=== PATIENT | female | born 1970 | race Caucasian/White ===

== ENCOUNTER 2016-12-25 16:44 | Inpatient (IN) | payer BC ==
[~2016-12-25] VITALS: Ht 167.6 cm; Wt 92.3 kg
[~2016-12-25 16:44] MED LIST: IBUP400T20 PO; ONDA1TAB16 PO; TRAM50 PO; TRAZ100 PO; TYLE3 PO; ZOLO50TA PO
[2016-12-25 16:48] VITALS: BP 157/74; PULSE 77; RESP 14; TEMP 97.5; O2SAT 99
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
[2016-12-25] MEDS ORDERED: SODIUM CHLORIDE 0.9% FLUSH 10 ML FLUSH IVF PRN (18:15)
[2016-12-25 18:27] VITALS: BP 139/72; PULSE 69; RESP 17; O2SAT 98
[2016-12-25 18:29] VITALS: BP 139/82; PULSE 66; RESP 16; O2SAT 98
--- NOTE | 2016-12-25 18:46 | RADRPT ---
EXAM DATE/TIME: 12/25/2016 18:27 [facility] COMPARISON: No previous studies available for comparison. INDICATIONS : Chest pain. MEDICAL HISTORY : Ulcers. SURGICAL HISTORY : Hysterectomy. ENCOUNTER: Initial ACUITY: 1 day PAIN SCORE: 5/10 LOCATION: Bilateral chest FINDINGS: Single AP view of the chest. The lungs are clear. Cardiomediastinal silhouette within normal limits. No evidence of pleural effusion or pneumothorax. CONCLUSION: No acute cardiopulmonary disease identified. Omari Cat MD on December 25, 2016 at 18:42 Board Certified Radiologist. This report was verified electronically.
[2016-12-25 19:01] LABS: AUTOMATED NEUTROPHIL # 5.2 TH/MM3 (1.8-7.7); BASOPHIL # 0.1 TH/MM3 (0-0.2); BASOPHIL % 0.8 % (0.0-2.0); EOSINOPHIL # 0.1 TH/MM3 (0-0.4); EOSINOPHIL % 1.1 % (0.0-4.0); HEMATOCRIT 38.2 % (35.0-46.0); HEMO FLAGS DIFF FINAL; LYMPH % 26.3 % (9.0-44.0); LYMPHOCYTE # 2.1 TH/MM3 (1.0-4.8); MEAN CORPUSCULAR HEMOGLOBIN 28.8 PG (27.0-34.0); MEAN CORPUSCULAR HGB CONC 32.8 % (32.0-36.0); MONO % 8.1 % (0.0-8.0); NEUT % 63.7 % (16.0-70.0); PLATELET COUNT 221 TH/MM3 (150-450); RED BLOOD COUNT 4.34 MIL/MM3 (4.00-5.30); RED CELL DISTRIBUTION WIDTH 12.6 % (11.6-17.2); WHITE BLOOD COUNT 8.1 TH/MM3 (4.0-11.0)
--- NOTE | 2016-12-25 19:02 | RADRPT ---
EXAM DATE/TIME: 12/25/2016 18:36 [facility] COMPARISON: No previous studies available for comparison. INDICATIONS : Dizziness, cephalgia and blurred vision for one month. RADIATION DOSE: 57.10 CTDIvol (mGy) MEDICAL HISTORY : Hepatitis B. SURGICAL HISTORY : Tubal ligation. Hysterectomy. ENCOUNTER: Initial ACUITY: 1 month PAIN SCALE: 6/10 LOCATION: Bilateral head TECHNIQUE: Multiple contiguous axial images were obtained of the head. Using automated exposure control and adj ustment of the mA and/or kV according to patient size, radiation dose was kept as low as reasonably a chievable to obtain optimal diagnostic quality images. FINDINGS: CEREBRUM: The ventricles are normal for age. No evidence of midline shift, mass lesion, hemorrhage or acute in farction. No extra-axial fluid collections are seen. POSTERIOR FOSSA: The cerebellum and brainstem are intact. The 4th ventricle is midline. The cerebellopontine angle i s unremarkable. EXTRACRANIAL: The visualized portion of the orbits is intact. SKULL: The calvaria is intact. No evidence of skull fracture. CONCLUSION: No acute intracranial findings. Omari Cat MD on December 25, 2016 at 18:58 Board Certified Radiologist. This report was verified electronically.
[2016-12-25 19:07] LABS: APTT (PATIENT) 25.9 SEC (24.3-30.1); INTERNATIONAL NORMALIZED RATIO 0.9 RATIO
[2016-12-25 19:10] LABS: BLOOD, URINE NEG (NEG); COMMENT (UR) CULT NOT INDICATED; CULTURE IF INDICATED CULT NOT INDICATED; GLUCOSE,URINE NEG (NEG); KETONE, URINE NEG (NEG); NITRITE,URINE NEG (NEG); PH, URINE 5.5 (5.0-8.5); SQUAMOUS EPITHELIAL CELL URINE 7 /hpf (0-5); URINE COLOR YELLOW (YELLW/STRAW)
[2016-12-25 19:27] LABS: AMPHETAMINE, URINE NEG (NEG); BARBITURATES, URINE NEG (NEG); COCAINE, URINE NEG (NEG)
[2016-12-25 19:28] LABS: ANION GAP 10 MEQ/L (5-15); AST (GOT) 12 U/L (15-37); BICARBONATE 25.7 MEQ/L (21.0-32.0); BLOOD UREA NITROGEN 15 MG/DL (7-18); CHLORIDE 103 MEQ/L (98-107); GLOMERULAR FILTRATION RATE 74 ML/MIN (>89); POTASSIUM 3.6 MEQ/L (3.5-5.1); SODIUM (NA) 139 MEQ/L (136-145)
[2016-12-25 19:29] LABS: ALT (GPT) 21 U/L (10-53)
[2016-12-25] MEDS ORDERED: ZOLO100T PO (19:32)
[2016-12-25] MEDS ORDERED: GABA300C5 PO (19:32)
[2016-12-25 19:33] LABS: ALKALINE PHOSPHATASE 57 U/L (45-117); TOTAL BILIRUBIN ADULT 0.2 MG/DL (0.2-1.0)
[2016-12-25] MEDS ORDERED: TRAZ100T6 PO (19:34)
[2016-12-25] MEDS ORDERED: CYMB60CA PO (19:34)
[2016-12-25 19:35] LABS: CREATINE KINASE 74 U/L (26-192)
[2016-12-25 20:03] VITALS: BP 132/69; PULSE 70; RESP 18; O2SAT 98
[2016-12-25] MEDS ORDERED: LORazepam 2 MG/ML VIAL IM PRN (21:45)
[2016-12-25] MEDS ORDERED: ACETAMINOPHEN 325 MG TAB PO PRN (21:45)
[2016-12-25] MEDS ORDERED: ALUMINUM/MAGNESIUM/SIMETH 30 ML CUP PO PRN (21:45)
[2016-12-25] MEDS: LORazepam 1 MG TAB PO PRN (22:08)
[2016-12-25] MEDS: IBUPROFEN 600 MG TAB PO PRN (22:08)
[2016-12-25] MEDS: SERTRALINE HCL 100 MG TAB PO SCH (22:08)
[2016-12-25] MEDS ORDERED: traZODone HCL 100 MG TAB PO SCH (22:09)
[2016-12-25 22:15] VITALS: BP 127/86; PULSE 61; RESP 18; O2SAT 98
[2016-12-25 22:55] VITALS: BP 125/85; PULSE 72; RESP 19; TEMP 98.2; O2SAT 96
[2016-12-26] MEDS: LORazepam 1 MG TAB PO PRN ×3 (05:26→20:31)
[2016-12-26] MEDS: IBUPROFEN 600 MG TAB PO PRN ×2 (05:27→09:41)
[2016-12-26 06:03] VITALS: BP 116/67; PULSE 73; RESP 17; TEMP 97.1; O2SAT 97
[2016-12-26] MEDS ORDERED: DULoxetine HCl DR 60 MG CAP PO SCH (09:00)
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
--- NOTE | 2016-12-26 13:24 | EKG ---
Date Performed: 12/25/2016 Time Performed: 19:03:15 PTAGE: 46 years EKG: Sinus rhythm LOW QRS VOLTAGE IN PRECORDIAL LEADS BORDERLINE ECG PREVIOUS TRACING : 12/22/2011 14.09 Compared to prior tracing no significant change DOCTOR: Anthony Oliver Interpretating Date/Time 12/26/2016 13:22:45
--- NOTE | 2016-12-26 14:02 | PD.CONS ---
HPI Service [facility] Consult Requested By Psychiatry team Reason for Consult Pain management, fibromyalgia Primary Care Physician No Primary Care Physician Diagnoses: History of Present Illness Written by Niya Rand, acting as scribe for Dr. De Guzman on 12/26/16 at 13: 49. Patient is a 46-year-old female with primary medical history of depression, anxiety who came into the hospital for suicidal ideations. She states she's been battling with depression and suicidal thoughts since previous months secondary to having severe pain that has been bothering her. She is admitted to inpatient psychiatry unit for further evaluation. Consulted for medical management. Patient seen and examined today. Reports that she goes to her primary care [facility] [place] and was started on Cymbalta and gabapentin. States that increased dose of Cymbalta made her hallucinate and feel jittery and not feeling overall, so her doctor lowered down to dose but she feels that it's not helping her pain. She reports that she has been tested for rheumatoid arthritis but it was negative that she continued to be medicated on Cymbalta, gabapentin, Zoloft, trazodone and was explained discussed at fibromyalgia and depression goes hand in hand. Patient also reports insomnia, described as not sleeping very well that her mind is continually active and not stopping. She states that she tried so many things including aromatherapy, acupuncture but still is unable to sleep. She complained of pain generalized all over her body and joints - hands, knees, hip, dull/achy, rated 8/10-10 over 10. It occurs, intermittent, nonradiating, unrelieved by current regimen of Cymbalta and, pending. She also states that she has shooting pain numbness and tingling on her hands and on her feet that she was given, gabapentin for relief. Otherwise, denies SOB/ dyspnea. Denies chest pain, palpitations, headaches, dizziness. Denies fevers, chills, n/v/d. Denies hematuria, dysuria. Review of Systems Except as stated in HPI: all other systems reviewed are Neg Past Family Social History Allergies: Coded Allergies: Depakote (Verified Allergy, Severe, SEIZURES, 12/25/16) Erythromycin (Verified Allergy, Severe, Anaphylaxis, 12/25/16) Sulfa (Verified Allergy, Severe, Anaphylaxis, 12/25/16) Augmentin (Verified Allergy, Intermediate, rash, 12/25/16) Codeine (Verified Allergy, Unknown, ABDOMINAL PAIN, 12/25/16) Past Medical History Fibromyalgia Depression Anxiety Hepatitis B Past Surgical History Tubal ligation Hysterectomy Cortisone shot on the left knee Reported Medications Reported Meds & Active Scripts Active Reported Trazodone (Trazodone HCl) 100 Mg Tablet 100 Mg PO HS Cymbalta DR (Duloxetine HCl) 60 Mg Capdr 60 Mg PO DAILY Zoloft (Sertraline HCl) 100 Mg Tab 100 Mg PO HS Gabapentin 300 Mg Cap 300 Mg PO HS Active Ordered Medications Current Medications Medications (Trade) Dose Ordered Sig/Angela Route Start Time Stop Time Status Last Admin (NS Flush) 2 ml UNSCH PRN IVF 12/25/16 18:15 (Ativan) 1 mg Q6H PRN PO 12/25/16 21:45 12/26/16 12:44 (Ativan Inj) 1 mg Q6H PRN IM 12/25/16 21:45 (Tylenol) 650 mg Q4H PRN PO 12/25/16 21:45 (Milk Of Magnesia Liq) 30 ml DAILY PRN PO 12/25/16 21:45 (Mag-Al Plus Susp Liq) 30 ml Q6H PRN PO 12/25/16 21:45 (Zoloft) 100 mg HS PO 12/25/16 22:08 12/25/16 22:08 (Motrin) 600 mg Q6H PRN PO 12/25/16 22:00 12/26/16 09:41 (Cymbalta Dr) 30 mg DAILY PO 12/27/16 09:00 (Desyrel) 200 mg HS PO 12/26/16 21:00 (Neurontin) 300 mg HS PO 12/26/16 21:00 Family History She states that father and mother's side had hypertension, mother has diabetes Father is manic and both sisters are suicidal Social History Occasional alcohol use 20 year 1 pack per 3 days, has quit smoking 4 years ago Denies illicit drug use Physical Exam Vital Signs Vital Signs Date Time Temp Pulse Resp B/P Pulse Ox O2 Delivery O2 Flow Rate FiO2 12/26/16 06:03 97.1 73 17 116/67 97 12/25/16 22:55 98.2 72 19 125/85 96 12/25/16 22:15 61 18 127/86 98 Room Air 12/25/16 20:03 70 18 132/69 98 12/25/16 18:29 66 16 12/25/16 18:27 69 17 139/72 98 Room Air 12/25/16 16:48 97.5 77 14 157/74 99 Physical Exam GENERAL: This is a well-nourished, well-developed patient, in no apparent distress. SKIN: No rashes, ecchymoses or lesions. Cool and dry. HEAD: Atraumatic. Normocephalic. No temporal or scalp tenderness. EYES: Pupils equal round and reactive. Extraocular motions intact. No scleral icterus. No injection or drainage. ENT: Nose without bleeding, purulent drainage or septal hematoma. Throat without erythema, tonsillar hypertrophy or exudate. Uvula midline. Airway patent. NECK: Trachea midline. No JVD or lymphadenopathy. Supple, nontender, no meningeal signs. CARDIOVASCULAR: Regular rate and rhythm without murmurs, gallops, or rubs. RESPIRATORY: Clear to auscultation. Breath sounds equal bilaterally. No wheezes , rales, or rhonchi. GASTROINTESTINAL: Abdomen soft, non-tender, nondistended. No hepato-splenomegaly , or palpable masses. No guarding. MUSCULOSKELETAL: Extremities without clubbing, cyanosis, or edema. No joint tenderness, effusion, or edema noted. No calf tenderness. Negative Homans sign bilaterally. NEUROLOGICAL: Awake and alert. Cranial nerves II through XII intact. Motor and sensory grossly within normal limits. Five out of 5 muscle strength in all muscle groups. Normal speech. Laboratory Laboratory Tests Test 12/25/16 12/25/16 18:10 18:30 White Blood Count 8.1 Red Blood Count 4.34 Hemoglobin 12.5 Hematocrit 38.2 Mean Corpuscular Volume 88.0 Mean Corpuscular Hemoglobin 28.8 Mean Corpuscular Hemoglobin 32.8 Concent Red Cell Distribution Width 12.6 Platelet Count 221 Mean Platelet Volume 9.8 Neutrophils (%) (Auto) 63.7 Lymphocytes (%) (Auto) 26.3 Monocytes (%) (Auto) 8.1 Eosinophils (%) (Auto) 1.1 Basophils (%) (Auto) 0.8 Neutrophils # (Auto) 5.2 Lymphocytes # (Auto) 2.1 Monocytes # (Auto) 0.7 Eosinophils # (Auto) 0.1 Basophils # (Auto) 0.1 CBC Comment DIFF FINAL Differential Comment Prothrombin Time 10.0 Prothromb Time International 0.9 Ratio Activated Partial 25.9 Thromboplast Time Sodium Level 139 Potassium Level 3.6 Chloride Level 103 Carbon Dioxide Level 25.7 Anion Gap 10 Blood Urea Nitrogen 15 Creatinine 0.83 Estimat Glomerular Filtration 74 Rate Random Glucose 90 Calcium Level 9.0 Magnesium Level 2.0 Total Bilirubin 0.2 Aspartate Amino Transf 12 (AST/SGOT) Alanine Aminotransferase 21 (ALT/SGPT) Alkaline Phosphatase 57 Total Creatine Kinase 74 Troponin I LESS THAN 0.02 Total Protein 7.4 Albumin 3.8 Ethyl Alcohol Level LESS THAN 3 Urine Color YELLOW Urine Turbidity CLEAR Urine pH 5.5 Urine Specific [place] 1.018 Urine Protein NEG Urine Glucose (UA) NEG Urine Ketones NEG Urine Occult Blood NEG Urine Nitrite NEG Urine Bilirubin NEG Urine Urobilinogen LESS THAN 2.0 Urine Leukocyte Esterase NEG Urine WBC 1 Urine Squamous Epithelial 7 Cells Microscopic Urinalysis Comment CULT NOT INDICATED Urine Opiates Screen NEG Urine Barbiturates Screen NEG Urine Amphetamines Screen NEG Urine Benzodiazepines Screen NEG Urine Cocaine Screen NEG Urine Cannabinoids Screen NEG Result Diagram: 12/25/16180912/25/161809 Assessment and Plan Problem List: (1) Severe recurrent major depression without psychotic features ICD Code: F33.2 Status: Acute (2) Fibromyalgia affecting multiple sites ICD Code: M79.7 Status: Acute Assessment and Plan Patient is a 46-year-old female with primary medical history of depression, anxiety who came into the hospital for suicidal ideations. She states she's been battling with depression and suicidal thoughts since previous months secondary to having severe pain that has been bothering her. She is admitted to inpatient psychiatry unit for further evaluation. Consulted for medical management. Suicidal ideation, depression, anxiety - Managed by psychiatry team Chronic pain, fibromyalgia - Patient is already on Cymbalta may need possible adjustment to lower dose - Start Lyrica - Ibuprofen when necessary - Monitor for relief - Patient symptomatology as described are more related to depression. She states that her pain is all over and she does want to get up in the morning and do activities that she wanted. If her depression could be managed better most probably her chronic pain and fibromyalgia will improve. - Check folic acid, vitamin D level, TSH DVT prop ambulatory This note was transcribed by scribe [Niya Rand]. I, Dr. Jesus De Guzman personally performed the history, physical exam, and medical decision making; and confirmed the accuracy of the information in the transcribed note. Authenticated by Dr. Jesus De Guzman on 12/26/16 at 1400. Thank you for this consultation. We will follow patient with you. Code Status Full code Discussed Condition With Patient, nursing Niya Hays Dec 26, 2016 14:02 Jesus De Guzman MD Dec 26, 2016 17:25
[2016-12-26 18:00] VITALS: BP 119/66; PULSE 76; RESP 18; TEMP 97.5; O2SAT 99
[2016-12-26] MEDS: traZODone HCL 100 MG TAB PO SCH ×2 (20:30→21:25)
[2016-12-26] MEDS: SERTRALINE HCL 100 MG TAB PO SCH (20:31)
[2016-12-26] MEDS ORDERED: PREGABALIN 75 MG CAP PO SCH (21:00)
[2016-12-26] MEDS ORDERED: GABAPENTIN 300 MG CAP PO SCH (21:00)
[2016-12-27 05:54] VITALS: BP 100/60; PULSE 61; RESP 18; TEMP 98.1; O2SAT 97
[2016-12-27] MEDS ORDERED: DULoxetine HCl DR 60 MG CAP PO SCH (09:00)
[2016-12-27] MEDS: LORazepam 1 MG TAB PO PRN ×3 (10:34→20:54)
[2016-12-27] MEDS: IBUPROFEN 600 MG TAB PO PRN ×2 (10:34→16:43)
[2016-12-27 10:53] LABS: ANION GAP 9 MEQ/L (5-15); AST (GOT) 15 U/L (15-37); BICARBONATE 26.5 MEQ/L (21.0-32.0); BLOOD UREA NITROGEN 8 MG/DL (7-18); CHLORIDE 105 MEQ/L (98-107); GLOMERULAR FILTRATION RATE 99 ML/MIN (>89); POTASSIUM 4.1 MEQ/L (3.5-5.1); SODIUM (NA) 140 MEQ/L (136-145)
[2016-12-27 10:54] LABS: ALT (GPT) 20 U/L (10-53)
[2016-12-27 11:20] LABS: ALKALINE PHOSPHATASE 49 U/L (45-117); HDL CHOLESTEROL 72.9 MG/DL (40.0-60.0); LDL CHOLESTEROL 125 MG/DL (0-99); TOTAL BILIRUBIN ADULT 0.4 MG/DL (0.2-1.0)
--- NOTE | 2016-12-27 15:26 | HHI.PYPN ---
Subjective Remarks Patient was seen and case discussed with nursing. Patient is complaining of a headache since this morning and chronic pain that runs down her right arm. Motrin does not seem to be helping. She is also tearful and expresses suicidal ideation. Patient says she looks around the room can devise various ways of hurting herself with objects that she sees. However she denies any intent of doing so. Mood today is "crying all day." Objective Alert: Yes [place]: Person, Place Mood: Anxious, Depressed Affect: Tearful Memory Intact: Immediate (grossly intact) Hallucinations: Auditory (denies) Delusions: No Delusion Type: Other (on elicited) Suicidal: Intent (denies), Plan (specific objects that she sees), Ideation ( suicidal ideation) Homicidal: Ideation (denies) Insight/Judgment Fair Labs Test 12/27/16 09:39 Sodium Level 140 MEQ/L Potassium Level 4.1 MEQ/L Chloride Level 105 MEQ/L Carbon Dioxide Level 26.5 MEQ/L Anion Gap 9 MEQ/L Blood Urea Nitrogen 8 MG/DL Creatinine 0.65 MG/DL Estimat Glomerular Filtration 99 ML/MIN Rate Random Glucose 87 MG/DL Calcium Level 8.8 MG/DL Total Bilirubin 0.4 MG/DL Aspartate Amino Transf 15 U/L (AST/SGOT) Alanine Aminotransferase 20 U/L (ALT/SGPT) Alkaline Phosphatase 49 U/L Total Protein 6.9 GM/DL Albumin 3.4 GM/DL Triglycerides Level 109 MG/DL Cholesterol Level 220 MG/DL LDL Cholesterol 125 MG/DL HDL Cholesterol 72.9 MG/DL Cholesterol/HDL Ratio 3.01 RATIO Vitamin B12 Level 1088 PG/ML 25-Hydroxy Vitamin D Total 21.5 ng/ML Folate 17.3 NG/ML Thyroid Stimulating Hormone 1.360 uIU/ML 3rd Gen Vitals/IOs Vital Signs Date Time Temp Pulse Resp B/P Pulse Ox O2 Delivery O2 Flow Rate FiO2 12/27/16 05:54 98.1 61 18 100/60 97 12/25/16 22:15 Room Air Assessment & Plan Problem List: (1) Severe recurrent major depression without psychotic features ICD Code: F33.2 Assessment & Plan Medical consult for chronic pain. Spoke to psychiatric secretary and nursing about a one-to -one to be started right now. In the transfer to the 2700 unit. DC Cymbalta given she is on Zoloft Justification for Cont. Inpt. Patient will decompensate in a less restrictive setting David Brennan DO Dec 27, 2016 15:26
[2016-12-27] MEDS ORDERED: hydrOXYzine PAMOATE 25 MG CAP PO PRN (15:30)
[2016-12-27 15:47] VITALS: BP 124/84; PULSE 78; RESP 18; TEMP 98.3; O2SAT 97
[2016-12-27] MEDS: GABAPENTIN 100 MG CAP PO SCH (17:46)
[2016-12-27] MEDS: SERTRALINE HCL 100 MG TAB PO SCH (20:55)
[2016-12-27] MEDS: traZODone HCL 100 MG TAB PO SCH (21:55)
[2016-12-28] MEDS: IBUPROFEN 600 MG TAB PO PRN ×3 (04:53→16:52)
[2016-12-28 06:02] VITALS: BP 112/73; PULSE 82; RESP 18; TEMP 97.5; O2SAT 100
[2016-12-28] MEDS: LORazepam 1 MG TAB PO PRN (07:39)
[2016-12-28] MEDS: GABAPENTIN 100 MG CAP PO SCH (08:27)
[2016-12-28] MEDS: CHOLECALCIFEROL (VIT D3) 1000 UNIT TAB PO SCH (08:27)
--- NOTE | 2016-12-28 11:47 | HHI.PYPN ---
Subjective Remarks Patient seen and examined with nurse. Chart reviewed. Case discussed with nursing staff. Patient was transferred to the high acuity unit from the 2600 unit after she verbalized suicidal ideation. On my examination today, the patient reports a history of mental illness stretching back to adolescence when she had been placed on lithium. She notes that she has had 2 prior suicide attempts. She reports prior trials of Celexa, Prozac, Effexor, Depakote, gabapentin, lithium. No reported previous trials of atypical antipsychotics. She reports ongoing low mood and vague suicidal ideation but denies any urge to hurt herself on the inpatient psychiatric unit at this time. Complains of anxious rumination, irritability, sleep disturbance, lack of energy and motivation. No psychotic symptoms. She reports that she is unable to tolerate the Cymbalta and gabapentin and requests that these be discontinued. We discussed alternative strategies for the management of her depression including augmentation of her Zoloft, which she is tolerating well, with lithium, antipsychotics like Seroquel or Abilify, Lamictal, thyroid hormone. After discussion of the risks and benefits of each, she agrees to augmentation with atypical antipsychotic, namely Seroquel. No physical complaints except generalized myalgias related to history of fibromyalgia. Review of Systems Except as stated in HPI: all other systems reviewed are Neg Objective Alert: Yes [place]: Person, Place Mood: Anxious, Depressed Affect: Restricted Memory Intact: Comment (remains intact on clinical exam) Hallucinations: Other (denies AVH) Delusions: No Delusion Type: Other (no delusional material) Suicidal: Intent (denies intent), Plan (denies plan), Ideation (vague suicidal ideation) Homicidal: Ideation (no HI) Insight/Judgment Fair Remarks No motor abnormalities. TP linear. Speech somewhat slow with increased speech latency. Labs Labs reviewed. EKG reveals sinus rhythm with a QTC of 396 ms. Vitals/IOs Vital Signs Date Time Temp Pulse Resp B/P Pulse Ox O2 Delivery O2 Flow Rate FiO2 12/28/16 06:02 97.5 82 18 112/73 100 12/25/16 22:15 Room Air Assessment & Plan Problem List: (1) Severe recurrent major depression without psychotic features ICD Code: F33.2 Assessment & Plan Discontinue Cymbalta and gabapentin due to reported intolerance of these agents. Continue Zoloft as ordered. Augment Zoloft with Seroquel 25 mg at bedtime with plans to titrate to effect. I will additionally provide patient with 12.5 mg of Seroquel twice daily as needed for anxiety, and this will replace her Ativan PRN. Continue to monitor on the high acuity unit for now, although I will discontinue the one-to-one at this time with low threshold to replace one-to-one in the event of any sort of behavioral deterioration. Continue other medications and care as ordered. Patient may sign voluntary and consent for medications. Justification for Cont. Inpt. Medication changes in process. High risk for decompensation in a less restrictive environment. Monitoring for impairments in safety. Discharge Planning Pending psychiatric stabilization Request HC Surrog/Guard Advoc?: No Felipe Acosta MD Dec 28, 2016 11:47
[2016-12-28] MEDS ORDERED: PILL SPLITTER OTHER PRN (12:15)
--- NOTE | 2016-12-28 14:49 | EKG ---
Date Performed: 12/27/2016 Time Performed: 12:20:21 PTAGE: 46 years EKG: Sinus rhythm LOW QRS VOLTAGE IN PRECORDIAL LEADS Since previous tracing, no significant change noted BORDERLINE E CG PREVIOUS TRACING : 12/25/2016 19.03 DOCTOR: Rey Chung Interpretating Date/Time 12/28/2016 14:48:27
[2016-12-28] MEDS: MAGNESIUM HYDROXIDE SUSP 30 ML CUP PO PRN ×2 (14:53→22:01)
--- NOTE | 2016-12-28 16:26 | HHI.PR ---
Subjective Remarks Reconsult for pain related to fibromyalgia. Per my previous recommendation, patient was started on Lyrica. However this was discontinued prior to the patient receiving a dose. Patient is currently on ibuprofen, Zoloft, Seroquel, and trazodone. Patient is seen in her room. She reports generalized joint pain, improved with ibuprofen. She reports that she is not sleeping well at night. She was started on Seroquel at night to help with sleep. Objective Vitals Vital Signs Date Time Temp Pulse Resp B/P Pulse Ox O2 Delivery O2 Flow Rate FiO2 12/28/16 06:02 97.5 82 18 112/73 100 Result Diagram: 12/25/16180912/27/16 0939 Imaging Last Impressions Head CT 12/25/161801 Signed Impressions: Service Date/Time: Sunday, December 25, 2016 18:36 - CONCLUSION: No acute intracranial findings. Omari Cat MD Chest X-Ray 12/25/161801 Signed Impressions: Service Date/Time: Sunday, December 25, 2016 18:27 - CONCLUSION: No acute cardiopulmonary disease identified. Omari Cat MD Objective Remarks GENERAL: This is a well-nourished, well-developed patient, in no apparent distress. CARDIOVASCULAR: Normal rate and regular rhythm without murmurs, gallops, or rubs. RESPIRATORY: Good respiratory efforts. Breath sounds equal and clear to auscultation bilaterally. GASTROINTESTINAL: Abdomen soft, non-tender, non-distended. Normal active bowel sounds MUSCULOSKELETAL: Extremities without cyanosis, or edema. NEURO: Alert & Oriented x4 to person, place, time, situation. Moves all ext x4 PSYCH: Flat affect A/P Problem List: (1) Severe recurrent major depression without psychotic features ICD Code: F33.2 Status: Acute (2) Fibromyalgia affecting multiple sites ICD Code: M79.7 Status: Acute Assessment and Plan 46-year-old female with primary medical history of depression, anxiety who came into the hospital for suicidal ideations. She states she's been battling with depression and suicidal thoughts since previous months secondary to having severe pain that has been bothering her. She is admitted to inpatient psychiatry unit for further evaluation. Consulted for medical management of pain related to reported history of fibromyalgia. Suicidal ideation, depression, anxiety - Managed by psychiatry team Chronic pain, fibromyalgia -Patient was on Cymbalta. This was discontinued. Apparently she refused gabapentin. One can consider Lyrica in this monitored setting and see if she has side effects or improvement of her symptoms per my previous recommendation. - Ibuprofen when necessary. She appears comfortable throughout our conversation and I see no objective evidence requiring narcotics or stronger pain medication. - Outpatient follow up is warranted with PCP and Rheumatology. Hyperlipidemia: Based on ASCVD risk calculation, patient will not benefit from a statin at this time. Advised outpatient follow-up. Diet low in fat and cholesterol. DVT prop ambulatory I have nothing further to add. Will sign off. Please call with questions. Jesus De Guzman MD Dec 28, 2016 16:26
[2016-12-28 16:43] LABS: HEMOGLOBIN A1a 1.1 %; HEMOGLOBIN A1b 0.7 %; HEMOGLOBIN Ao 86.5 %; HEMOGLOBIN F 1.2 %; HEMOGLOBIN LA1C 1.6 %; HEMOGLOBIN P3 3.3 %
[2016-12-28] MEDS: QUEtiapine FUMARATE 25 MG TAB PO PRN (16:52)
--- NOTE | 2016-12-28 17:23 | HHI.PR ---
Subjective Remarks Follow-up visit fibromyalgia, insomnia. Patient seen and examined today. Reports headaches and body aches and pain is slightly improving with Motrin use. States she she still cannot sleep at night, she would sleep at 10 PM and would be awake at 2 AM. Patient seen by Dr. Ca a day and we'll add Seroquel on the medication regimen. Otherwise, denies SOB/ dyspnea. Denies chest pain, palpitations, headaches, dizziness. Denies fevers, chills, n/v/d. Denies hematuria, dysuria. Objective Vitals Vital Signs Date Time Temp Pulse Resp B/P Pulse Ox O2 Delivery O2 Flow Rate FiO2 12/28/16 06:02 97.5 82 18 112/73 100 Result Diagram: 12/25/16 18112/27/16 0939 Objective Remarks GENERAL: This is a well-nourished, well-developed patient, in no apparent distress. SKIN: Warm and dry. HEAD: Atraumatic. Normocephalic. EYES: Pupils equal round and reactive. No scleral icterus. No injection or drainage. ENT: Nose without bleeding. Airway patent. NECK: Trachea midline. No JVD or lymphadenopathy. CARDIOVASCULAR: Regular rate and rhythm without murmurs, gallops, or rubs. RESPIRATORY: Clear to auscultation. Breath sounds equal bilaterally. No wheezes , rales, or rhonchi. GASTROINTESTINAL: Abdomen soft, non-tender, nondistended. Bowel sounds active 4. MUSCULOSKELETAL: Extremities without clubbing, cyanosis, or edema. NEUROLOGICAL: Awake and alert. Motor and sensory grossly within normal limits. Five out of 5 muscle strength in all muscle groups. Normal speech. A/P Problem List: (1) Severe recurrent major depression without psychotic features ICD Code: F33.2 Status: Acute (2) Fibromyalgia affecting multiple sites ICD Code: M79.7 Status: Acute Assessment and Plan Patient is a 46-year-old female with primary medical history of depression, anxiety who came into the hospital for suicidal ideations. She states she's been battling with depression and suicidal thoughts since previous months secondary to having severe pain that has been bothering her. She is admitted to inpatient psychiatry unit for further evaluation. Consulted for medical management. Suicidal ideation, depression, anxiety - Managed by psychiatry team Chronic pain, fibromyalgia - Patient was discontinued on Cymbalta and gabapentin. Psychiatry did not agree on starting Lyrica. She is now on zoloft and started on seroqel - Ibuprofen when necessary - Monitor for relief - Patient symptomatology as described are more related to depression. - Folic acid within normal, TSH within normal Insomnia - Patient will be on trazodone and Seroquel - Monitor for relief Vitamin D insufficiency - Start vitamin D supplementation 1000 mg daily - Recheck in 3 months as an outpatient with PCP DVT prop ambulatory Discussed with patient, nursing, DrNiya Otoole Dec 28, 2016 17:23 Jesus De Guzman MD Dec 28, 2016 21:34
[2016-12-28] MEDS: traZODone HCL 100 MG TAB PO SCH (21:20)
[2016-12-28] MEDS: SERTRALINE HCL 100 MG TAB PO SCH (21:20)
[2016-12-28] MEDS: QUEtiapine FUMARATE 25 MG TAB PO SCH (21:20)
[2016-12-29 00:30] VITALS: BP 113/67; PULSE 78; RESP 18; TEMP 98.3; O2SAT 99
[2016-12-29 05:39] VITALS: BP 113/57; PULSE 71; RESP 20; TEMP 99.4; O2SAT 98
[2016-12-29] MEDS: CHOLECALCIFEROL (VIT D3) 1000 UNIT TAB PO SCH (08:38)
[2016-12-29] MEDS: IBUPROFEN 600 MG TAB PO PRN ×2 (08:39→16:59)
--- NOTE | 2016-12-29 10:51 | PD.TTN ---
Present for Treatment Team Treatment Team Staff: Provider (Dr. Acosta), Nurse (Jovan Mena RN), Psych Therapist (LYLA Hilario), Occupational Therapist (Scot Al OT) Patient Problems 1. Discharge planning 2. Medication compliance 3. Knowledge deficit 4. Lack of coping skills Progress Toward Goals Provider Input: Pt medication regiment will be adjusted in order to assist with further stabilization. Nurse Input: Pt presents as depressed and tearful at times but with brightening affect. Pt is compliant, cooperative, appropriate and organized. Psych Therapist Input: Pt appears somewhat depressed, cooperative, appropriate and with improving insight into condition. Pt will be linked to outpatient services after discharge. Occupational Therapist Input: Pt is attending groups and participating actively. Documentation Scribe: LYLA Hilario Date Resolved: Dec 29, 2016 Rah Thomas Dec 29, 2016 10:51
--- NOTE | 2016-12-29 15:27 | HHI.PYPN ---
Subjective Remarks Patient seen and examined with nurse. Chart reviewed. Case discussed in treatment team. On my examination today, the patient complains of feeling a little bit groggy from the Seroquel when combined with her already increased dose of trazodone last night. She does say that the Seroquel helped calm her down, and her affect seems more reactive and euthymic today. She feels subjectively improved and denies suicidal ideation at this time. We discuss starting Lyrica as recommended by the hospitalist for her fibromyalgia pain, and she is agreeable to this. Denies side effects from medications otherwise. No new physical complaints. Review of Systems Except as stated in HPI: all other systems reviewed are Neg Objective Alert: Yes [place]: Person, Place Mood: Depressed Affect: Other (affect more reactive and euthymic. Laughs appropriately at times.) Memory Intact: Comment (intact) Hallucinations: Other (no hallucinations) Delusions: No Delusion Type: Other (no delusions) Suicidal: Ideation (denies suicidal ideation) Homicidal: Ideation (no homicidal ideation) Insight/Judgment Fair Remarks No motor abnormalities noted. Thought process linear. Grooming and hygiene fair. Labs Labs reviewed. Vitals/IOs Vital Signs Date Time Temp Pulse Resp B/P Pulse Ox O2 Delivery O2 Flow Rate FiO2 12/29/16 05:39 99.4 71 20 113/57 98 12/25/16 22:15 Room Air Assessment & Plan Problem List: (1) Severe recurrent major depression without psychotic features ICD Code: F33.2 Assessment & Plan Taper trazodone to 100 mg at bedtime. Hopefully this will allow us to continue to titrate her Seroquel without excessive daytime grogginess, as this agent seems to be improving her mood and lessening anxiety. Continue Seroquel as ordered for now. Continue Zoloft as ordered. I will add Lyrica as recommended by the hospitalist. Hospitalist input noted and appreciated. Continue to monitor on the high acuity unit overnight although she may be appropriate for transfer back to the lower acuity unit tomorrow, Wednesday. Continue other medications and care as ordered. Justification for Cont. Inpt. Medication changes in process. Monitoring for impairments in safety. Discharge Planning Pending psychiatric stabilization. I anticipate that the patient will require approximately 5-7 additional inpatient days. Request HC Surrog/Guard Advoc?: No Felipe Acosta MD Dec 29, 2016 15:27
[2016-12-29 18:13] VITALS: BP 118/71; PULSE 80; RESP 20; TEMP 96; O2SAT 97
[2016-12-29] MEDS: traZODone HCL 100 MG TAB PO SCH (21:00)
[2016-12-29] MEDS: SERTRALINE HCL 100 MG TAB PO SCH (21:00)
[2016-12-29] MEDS: PREGABALIN 75 MG CAP PO SCH (21:00)
[2016-12-29] MEDS: QUEtiapine FUMARATE 25 MG TAB PO SCH (21:00)
[2016-12-30] MEDS: IBUPROFEN 600 MG TAB PO PRN ×4 (00:42→21:32)
[2016-12-30] MEDS: QUEtiapine FUMARATE 25 MG TAB PO PRN ×2 (00:42→10:57)
[2016-12-30 06:20] VITALS: BP 124/62; PULSE 97; RESP 18; TEMP 97.4; O2SAT 98
[2016-12-30] MEDS: PREGABALIN 75 MG CAP PO SCH ×2 (08:56→21:33)
[2016-12-30] MEDS: CHOLECALCIFEROL (VIT D3) 1000 UNIT TAB PO SCH (08:56)
--- NOTE | 2016-12-30 11:11 | HHI.PYPN ---
Subjective Remarks Patient seen and examined with counselor. Chart reviewed. Case discussed with nursing staff. No problematic behaviors noted while under observation on the high acuity unit. On my examination today, the patient reports that she slept somewhat poorly overnight but feels less drowsy today. Mood remains somewhat depressed. Affect anxious reports "my brain won't shut down." Denies suicidal ideation. Complains of some headache, reports a history of migraine headaches. Also complains of constipation times 4-5 days but still passing flatus. No other physical complaints. No side effects from medications. Review of Systems Except as stated in HPI: all other systems reviewed are Neg Objective Alert: Yes [place]: Person, Place Mood: Anxious, Depressed Affect: Other (anxious) Memory Intact: Comment (intact) Hallucinations: Other (no AVH) Delusions: No Delusion Type: Other (no delusional material elicited) Suicidal: Ideation (denies SI) Homicidal: Ideation (no HI) Insight/Judgment Fair Remarks No motoric abnormalities noted. Thought processes linear. Speech within normal limits for rate, tone and volume. Grooming and hygiene good. Labs Labs reviewed. Vitals/IOs Vital Signs Date Time Temp Pulse Resp B/P Pulse Ox O2 Delivery O2 Flow Rate FiO2 12/30/16 06:20 97.4 97 18 124/62 98 Assessment & Plan Problem List: (1) Severe recurrent major depression without psychotic features ICD Code: F33.2 Assessment & Plan Titrate Seroquel to 50 mg at bedtime. Continue PRN dose during the day. One- time dose of Fioricet for headache. [place] bowel regimen: Colace scheduled and Dulcolax as needed. Transfer back to 2600 unit as patient has been no behavioral problem on the high acuity unit. Continue other medications and care as ordered. Justification for Cont. Inpt. Medication changes in process. High risk for decompensation in a less restrictive environment. Discharge Planning Pending psychiatric stabilization. Request HC Surrog/Guard Advoc?: No Felipe Acosta MD Dec 30, 2016 11:11
[2016-12-30] MEDS ORDERED: ACETAMIN 325 MG/BUTALBITAL 50 MG/CAFFEINE 40 MG TAB PO ONE ×2 (11:15→17:30)
[2016-12-30] MEDS: DOCUSATE SODIUM 100 MG CAP PO SCH ×2 (11:15→21:33)
[2016-12-30] MEDS ORDERED: BISACODYL EC 5 MG TABEC PO PRN (11:15)
[2016-12-30] MEDS ORDERED: QUEtiapine FUMARATE 25 MG TAB PO SCH (21:00)
[2016-12-30] MEDS: SERTRALINE HCL 100 MG TAB PO SCH (21:33)
[2016-12-30] MEDS: traZODone HCL 100 MG TAB PO SCH (21:33)
[2016-12-31 05:18] VITALS: BP 101/62; PULSE 65; RESP 17; TEMP 97.7; O2SAT 98
[2016-12-31] MEDS: CHOLECALCIFEROL (VIT D3) 1000 UNIT TAB PO SCH (08:44)
[2016-12-31] MEDS: DOCUSATE SODIUM 100 MG CAP PO SCH ×2 (08:44→22:09)
[2016-12-31] MEDS: PREGABALIN 75 MG CAP PO SCH (08:45)
[2016-12-31] MEDS: IBUPROFEN 600 MG TAB PO PRN ×2 (09:17→16:55)
[2016-12-31] MEDS: QUEtiapine FUMARATE 25 MG TAB PO PRN (13:58)
--- NOTE | 2016-12-31 15:22 | HHI.PYPN ---
Subjective Remarks Patient seen and examined with nurse. Chart reviewed. Case discussed with nursing staff. On my examination today, the patient reports that she slept somewhat poorly overnight. Mood remains a little bit low although she denies suicidal ideation. She does feel somewhat anxious during the day and we discuss adding a scheduled dose of Seroquel during the day. She is unsure if the Lyrica is providing any benefit and she is worried that it will be poorly covered by her insurer and requests that it be discontinued. Denies side effects from medications. No physical complaints. She is contemplating requesting discharge tomorrow. Review of Systems Except as stated in HPI: all other systems reviewed are Neg Objective Alert: Yes [place]: Person, Place Mood: Anxious Affect: Blunted Memory Intact: Comment (remains intact) Hallucinations: Other (No AVH) Delusions: No Delusion Type: Other (No delusions) Suicidal: Ideation (Denies SI) Homicidal: Ideation (no HI) Insight/Judgment Poor Remarks Thought process linear. No motoric abnormalities noted. Labs Labs reviewed. No new labs. Vitals/IOs Vital Signs Date Time Temp Pulse Resp B/P Pulse Ox O2 Delivery O2 Flow Rate FiO2 12/31/16 05:18 97.7 65 17 101/62 98 Assessment & Plan Problem List: (1) Severe recurrent major depression without psychotic features ICD Code: F33.2 Assessment & Plan Titrate Seroquel to 25/100 mg to target anxiety and to help with sleep. Titrate Zoloft to 150 mg per day for mood. Discontinue Lyrica per patient preference. Continue other medications and care as ordered. Justification for Cont. Inpt. Medication changes in process Discharge Planning Possible discharge tomorrow, Wednesday. Request HC Surrog/Guard Advoc?: No Felipe Acosta MD Dec 31, 2016 15:22
[2016-12-31 18:10] VITALS: BP 102/54; PULSE 66; RESP 17; TEMP 97.1
[2016-12-31] MEDS ORDERED: QUEtiapine FUMARATE 100 MG TAB PO SCH (21:00)
[2016-12-31] MEDS ORDERED: SERTRALINE HCL 100 MG TAB PO SCH (21:00)
[2016-12-31] MEDS: traZODone HCL 100 MG TAB PO SCH (22:09)
[2017-01-01 05:19] VITALS: BP 109/59; PULSE 70; RESP 16; TEMP 97.6; O2SAT 98
[2017-01-01] MEDS ORDERED: DOCU1CAP39 PO (08:23)
[2017-01-01] MEDS ORDERED: QUET1TAB7 PO (08:23)
[2017-01-01] MEDS ORDERED: QUET1TAB8 PO (08:23)
[2017-01-01] MEDS ORDERED: ZOLO100T PO (08:23)
[2017-01-01] MEDS ORDERED: TRAZ50TA12 PO (08:23)
--- NOTE | 2017-01-01 08:23 | HHI.DS ---
Psychiatry Discharge Summary Inpatient Psychiatric care?: Yes Advance Directive: Yes Mental Health AdvanceDirective: No Health Care Proxy: No Admission Admission Date Dec 25, 2016 at 21:46 Admission Diagnosis: (1) Severe recurrent major depression without psychotic features ICD Code: F33.2 Brief History This is a 46-year-old female with a markedly long history of depression beginning in her teenage years, admitted last night under a [place] act for driving erratically and thinking of driving in traffic to end her life. Patient has 2 previous suicide attempts, including overdosing on aspirin at age a 16 and a second attempt by strangling herself with a coat body hanger. Patient states she has been increasingly depressed over the last several months and yesterday it came to the attention of her coworkers that she was not functioning well. They persuaded her to go to the emergency department where she was [place] acted by one of our [place] physicians. The patient does indeed admit to suicidal ideation. She has plans of driving into traffic. In fact she was driving erratically on purpose last night. She describes symptoms of depressed mood, suicidal thinking, anxiety, feelings of hopelessness and helplessness, social withdrawal, decreased energy, diminished concentration, feelings of guilt, low self-esteem, anhedonia, etc. The patient had been treated by a primary care physician for her depression and fibromyalgia. The physician left town and a different physician was also changing her medicines. However the patient states the medicines were not working and in fact making her feel worse. She is not sleeping and she is tired and anxious during the day. She denies a history of alcohol or substance abuse. Tobacco Use In Past 30 Days: No Tobacco Past 30 Days Alcohol Use: Monthly or Less Hospital Course Patient was admitted to a locked, inpatient psychiatric unit. A general medical consultation was obtained. Appropriate precautions were in place throughout patient's hospital stay. Patient was seen and examined daily on the unit by psychiatry and also visited by counselor. Psychotropic medications were adjusted. Patient tolerated medication changes generally well without side effects. Patient did verbalize suicidal ideation with possible plan to injure herself on the inpatient unit towards the beginning of her hospital stay , necessitating transfer from the lower acuity to the higher acuity inpatient psychiatric unit. However, with further treatment, her suicidal ideation completely resolved and she was able to be transitioned back to the lower acuity unit without incident. There was no further evidence of any suicidality or homicidality on the inpatient unit. Patient remained in generally good behavioral control and was compliant with medications. On the day of discharge : Patient seen and examined. Chart reviewed. Case discussed with nursing staff. No behavioral issues noted. On my examination today, the patient reports that she feels much improved versus admission and is requesting discharge from the inpatient psychiatric unit. Mood is improved. Anxiety is decreased. No significant ongoing depressive or hypomanic/manic symptoms. She denies any suicidal or homicidal ideation, intent or plan on direct questioning. She is future oriented. No psychotic symptoms. Denies side effects from medications. No physical complaints. Weighing the acute, chronic , and protective factors and based on the available evidence, I detention officer to a reasonable degree of medical certainty that the patient is at low imminent risk of harm to self or others from a mental illness as defined under the Marroquin act and her level of function is adequate for outpatient care. Patient will be discharged today with psychiatric follow-up as arranged by counselor. Patient is also to follow-up with primary care as well as with neurology for her complaints of chronic headache. I have counseled patient regarding warning signs for need to return to the psychiatric emergency room is part of a general safety plan. Results Blood Pressure 109 / 59 Vital Signs Date Time Temp Pulse Resp B/P Pulse Ox O2 Delivery O2 Flow Rate FiO2 01/01/17 05:19 97.6 70 16 109/59 98 Laboratory Results Test 12/27/16 09:39 Hemoglobin A1c 5.3 % (4.3-6.0) Triglycerides Level 109 MG/DL (42-150) Cholesterol Level 220 MG/DL (120-200) LDL Cholesterol 125 MG/DL (0-99) HDL Cholesterol 72.9 MG/DL (40.0-60.0) Summary of Procedures None done Imaging Last Impressions Head CT 12/25/161801 Signed Impressions: Service Date/Time: Sunday, December 25, 2016 18:36 - CONCLUSION: No acute intracranial findings. Omari Cat MD Chest X-Ray 12/25/161801 Signed Impressions: Service Date/Time: Sunday, December 25, 2016 18:27 - CONCLUSION: No acute cardiopulmonary disease identified. Omari Cat MD Pending results at discharge: No Medications # of Antipsychotic meds at D/C: 1 Approp Antipsych med options 1 - Minimum of three failed multiple trials of monotherapy. 2 - Documented plan to taper to monotherapy due to previous use of multiple meds OR cross-taper in progress at D/C. 3 - Documentation of augmentation of Clozapine. 4 - Justification other than those listed in allowable values 1-3, document here : Discharge Discharge Date: Jan 01, 2017 Discharge Diagnosis: (1) Major depressive disorder, recurrent, in partial remission Diagnosis: Principal ICD Code: F33.41 GAF on discharge is 60 Mental Status Exam at Disch Patient is casually dressed. She is well groomed. She is awake and alert and oriented to person and hospital along with approximate date. No motor abnormalities noted. No hand tremor, no dystonia, no dyskinesia noted. Speech is within normal limits for rate, tone and volume. Language and fund of knowledge seem at least average. Focus and concentration intact. Memory grossly intact on clinical exam. Mood is improved versus admission and affect is full and reactive. Thought process linear. No loosening of associations. No evident delusional material. Denies audiovisual hallucinations. Denies suicidal or homicidal ideation, intent or plan. Insight and judgment are fair. Pt Condition on Discharge: Stable Discharge Disposition: Discharge Home Discharge Instructions Diet Instructions: As Tolerated, No Restrictions Activities you can perform: Weight Bearing as Sha Scheduled Appointment: as per counselor's notes New Medications: Docusate Sodium (Dok) 100 Mg Cap 100 MG PO BID Constipation Days 15 Ref 1 CAP Quetiapine (Quetiapine) 100 Mg Tab 100 MG PO HS Mental Health Days 15 Ref 1 TAB Quetiapine (Quetiapine) 25 Mg Tab 25 MG PO DAILY Mental Health Days 15 Ref 1 TAB Sertraline (Zoloft) 100 Mg Tab 150 MG PO HS Mental Health Days 15 Ref 1 TAB Trazodone (Trazodone) 50 Mg Tab 100 MG PO HS Sleep Days 15 Ref 1 TAB Discontinued Medications: Duloxetine DR (Cymbalta DR) 60 Mg Capdr 60 MG PO DAILY #30 Ref 0 CAP Gabapentin (Gabapentin) 300 Mg Cap 300 MG PO HS #30 Ref 0 CAP Sertraline (Zoloft) 100 Mg Tab 100 MG PO HS #30 Ref 0 TAB Trazodone (Trazodone) 100 Mg Tablet 100 MG PO HS Control Depression #30 Ref 0 TAB Discharge Time <= 30 minutes Discharge/Advance Care Plan Health Problems: (1) Severe recurrent major depression without psychotic features Goals to promote your health * To prevent worsening of your condition and complications * To maintain your health at the optimal level Directions to meet your goals Take your medications as prescribed Follow your dietary instruction Follow activity as directed Keep your appointments as scheduled Take your immunizations and boosters as scheduled If your symptoms worsen call your PCP, if no PCP go to Urgent Care Center or Emergency Room For 01/02 questions related to your inpatient stay or results of tests pending at discharge, please contact Dr. Felipe Acosta at Smoking is Dangerous to Your Health. Avoid second hand smoking Felipe Acosta MD Jan 01, 2017 08:23
[2017-01-01] MEDS: DOCUSATE SODIUM 100 MG CAP PO SCH (08:50)
[2017-01-01] MEDS: CHOLECALCIFEROL (VIT D3) 1000 UNIT TAB PO SCH (08:50)
[2017-01-01] MEDS ORDERED: QUEtiapine FUMARATE 25 MG TAB PO SCH (09:00)
== END 2017-01-01 12:05 | disposition home or self-care (01) | DRG 885 ==
LOC: NEPD 16:44 → NEDA 21:46 → H270 22:54 → H260 12-26 16:00 → H270 12-27 15:41 → H260 12-30 15:36
PROVIDERS: ADMIT Psychiatry & Neurology Psychiatry; ATTEND Psychiatry & Neurology Psychiatry
DX: F33.2 Major depressive disorder, recurrent severe without psychotic features (principal); R45.851 Suicidal ideations; E55.9 Vitamin D deficiency, unspecified; F60.89 Other specific personality disorders; F41.9 Anxiety disorder, unspecified; G47.00 Insomnia, unspecified; M79.7 Fibromyalgia; G47.30 Sleep apnea, unspecified; G89.29 Other chronic pain; K59.00 Constipation, unspecified; Z79.899 Other long term (current) drug therapy; Z87.891 Personal history of nicotine dependence; Z91.5 Personal history of self-harm; T75.00XA Unspecified effects of lightning, initial encounter
CPT/HCPCS: 70450; 71010; 80053; 80061; 80307; 81001; 82306; 82550; 82607; 82746; 83036; 83735; 84443; 84484; 85025; 85610; 85730; 93005; Q0177

== ENCOUNTER 2017-11-02 10:16 | Inpatient (IN) | payer BC ==
[2017-11-02] VITALS (10 sets, daily range): BP systolic 102–138; BP diastolic 59–75; PULSE 63–124; RESP 18; TEMP 100.7–102.7; O2SAT 94–99
[~2017-11-02] VITALS: Ht 167.6 cm; Wt 95.7 kg
[~2017-11-02 10:16] MED LIST changes: +DOCU1CAP39 PO; -IBUP400T20 PO; -ONDA1TAB16 PO; +QUET1TAB7 PO; +QUET1TAB8 PO; -TRAM50 PO; -TRAZ100 PO; +TRAZ50TA12 PO; -TYLE3 PO; +ZOLO100T PO; -ZOLO50TA PO
[2017-11-02] MEDS ORDERED: TRAZ1TAB14 PO (10:42)
[2017-11-02] MEDS ORDERED: LORA-392 PO (10:42)
[2017-11-02] MEDS ORDERED: ZOLO50TA PO (10:42)
[2017-11-02] MEDS ORDERED: ARIP2 PO (10:42)
[2017-11-02] MEDS ORDERED: SODIUM CHLOR 0.9% 1000 ML INJ 1,000 ML IV SCH (11:08)
[2017-11-02] MEDS ORDERED: MORPHINE SULFATE 4 MG/ML INJ IV PUSH ONE ×2 (11:15→13:00)
[2017-11-02] MEDS ORDERED: ONDANSETRON HCL 4 MG/2 ML VIAL IVP ONE (11:15)
[2017-11-02] MEDS ORDERED: SODIUM CHLORIDE 0.9% FLUSH 10 ML FLUSH IV FLUSH PRN (11:15)
--- NOTE | 2017-11-02 11:27 | PD ---
HPI Chief Complaint: Abdominal Pain Time Seen by Provider: 10:56 Travel History International Travel<30 days: No Contact w/Intl Traveler<30days: No Traveled to known affect area: No History of Present Illness HPI This is a 47-year-old that for 4 days has had vomiting and abdominal discomfort. She reports that she has moderate severity right lower quadrant abdominal pain, nonradiating, constant, worsening associated with nausea and inability to eat. She also had a watery stool. She developed a fever to 102 last night. She went to an urgent care prior to arrival who told her to come to the emergency department to rule out appendicitis. She has a history of a hysterectomy in the past. She is otherwise healthy. PFSH Past Medical History Arthritis: Yes Autoimmune Disease: No Blood Disorders: Yes (Anemia ) Bipolar Disorder: Yes Anxiety: Yes Depression: Yes Cancer: No Cardiovascular Problems: No Diabetes: No Patient Takes Glucophage: No Diminished Hearing: No Endocrine: No Fibromyalgia: Yes Gastrointestinal Disorders: Yes (Hep B ) Genitourinary: No Headaches: Yes Immune Disorder: No Implanted Vascular Access Dvce: No Musculoskeletal: No Neurologic: Yes Psychiatric: Yes Reproductive: No Respiratory: No Migraines: Yes Ulcer: Yes ?: Not : 3 Para: 2 Miscarriage: 1 Tubal Ligation: Yes Past Surgical History Gynecologic Surgery: Yes (hysterectomy) Hysterectomy: Yes Social History Alcohol Use: Yes (1 shot john, weekly) Tobacco Use: No Substance Use: No Allergies-Medications (Allergen,Severity, Reaction): Coded Allergies: Sulfa (Sulfonamide Antibiotics) (Unverified Allergy, Severe, Anaphylaxis, 11/02/17) divalproex sodium (Unverified Allergy, Severe, SEIZURES, 11/02/17) erythromycin base (Unverified Allergy, Severe, Anaphylaxis, 11/02/17) amoxicillin (Unverified Allergy, Intermediate, PT DENIES ALLERGY, 11/02/17) clavulanic acid (Unverified Allergy, Intermediate, rash, 11/02/17) codeine (Unverified Allergy, Unknown, ABDOMINAL PAIN, 11/02/17) Reported Meds & Prescriptions Reported Meds & Active Scripts Active Reported Zoloft (Sertraline HCl) 50 Mg Tab 50 Mg PO DAILY Ativan (Lorazepam) 0.5 Mg Tab 0.5 Mg PO DAILY PRN Trazodone (Trazodone HCl) 150 Mg Tablet 150 Mg PO HS Abilify (Aripiprazole) 2 Mg Tab 2 Mg PO DAILY Review of Systems Except as stated in HPI: all other systems reviewed are Neg Physical Exam Narrative GENERAL: Uncomfortable appearing, pain with movement in the bed. SKIN: Focused skin assessment warm and dry. HEAD: Atraumatic. Normocephalic. EYES: Pupils equal and round. No injection or drainage. ENT: Moist mucous membranes NECK: Trachea midline. CARDIOVASCULAR: Regular rate and rhythm. No murmur appreciated. RESPIRATORY: Clear to auscultation. Breath sounds equal bilaterally. GASTROINTESTINAL: Abdomen soft, tender to palpation in the right lower quadrant and suprapubic region with guarding. MUSCULOSKELETAL: No obvious deformities. NEUROLOGICAL: Awake and alert. No obvious cranial nerve deficits. Moving all extremities. PSYCHIATRIC: Appropriate mood and affect; insight and judgment normal. Data Data Last Documented VS Vital Signs Date Time Temp Pulse Resp B/P (MAP) Pulse Ox O2 Delivery O2 Flow Rate FiO2 11/02/17 12:04 102.0 105 18 118/67 (84) 99 Orders Orders Complete Blood Count With Diff (11/02/17 11:08) Comprehensive Metabolic Panel (11/02/17 11:08) Urinalysis - C+S If Indicated (11/02/17 11:08) Ct Abd/Pel W Iv Contrast(Rout) (11/02/17 11:08) Iv Access Insert/Monitor (11/02/17 11:08) Ecg Monitoring (11/02/17 11:08) Oximetry (11/02/17 11:08) Morphine Inj (Morphine Inj) (11/02/17 11:15) Ondansetron Inj (Zofran Inj) (11/02/17 11:15) Sodium Chlor 0.9% 1000 Ml Inj (Ns 1000 M (11/02/17 11:08) Sodium Chloride 0.9% Flush (Ns Flush) (11/02/17 11:15) Lactic Acid (11/02/17 11:51) Blood Culture (11/02/17 11:51) Piperacil-Tazo 3.375 Gm Premix (Zosyn 3. (11/02/17 12:00) Iohexol 350 Inj (Omnipaque 350 Inj) (11/02/17 11:52) Sodium Chlor 0.9% 1000 Ml Inj (Ns 1000 M (11/02/17 12:15) Acetaminophen (Tylenol) (11/02/17 12:15) Admit Order (Ed Use Only) (11/02/17 12:13) Labs Laboratory Tests Test 11/02/17 11:00 11/02/17 11:28 White Blood Count 15.2 TH/MM3 Red Blood Count 4.37 MIL/MM3 Hemoglobin 12.7 GM/DL Hematocrit 37.6 % Mean Corpuscular Volume 86.0 FL Mean Corpuscular Hemoglobin 29.1 PG Mean Corpuscular Hemoglobin Concent 33.9 % Red Cell Distribution Width 11.8 % Platelet Count 181 TH/MM3 Mean Platelet Volume 10.3 FL Neutrophils (%) (Auto) 93.1 % Lymphocytes (%) (Auto) 3.5 % Monocytes (%) (Auto) 2.9 % Eosinophils (%) (Auto) 0.0 % Basophils (%) (Auto) 0.5 % Neutrophils # (Auto) 14.2 TH/MM3 Lymphocytes # (Auto) 0.5 TH/MM3 Monocytes # (Auto) 0.4 TH/MM3 Eosinophils # (Auto) 0.0 TH/MM3 Basophils # (Auto) 0.1 TH/MM3 CBC Comment DIFF FINAL Differential Comment Blood Urea Nitrogen 5 MG/DL Creatinine 0.83 MG/DL Random Glucose 121 MG/DL Total Protein 8.0 GM/DL Albumin 3.4 GM/DL Calcium Level 9.1 MG/DL Alkaline Phosphatase 72 U/L Aspartate Amino Transf (AST/SGOT) 34 U/L Alanine Aminotransferase (ALT/SGPT) 27 U/L Total Bilirubin 0.5 MG/DL Sodium Level 135 MEQ/L Potassium Level 3.5 MEQ/L Chloride Level 102 MEQ/L Carbon Dioxide Level 26.2 MEQ/L Anion Gap 7 MEQ/L Estimat Glomerular Filtration Rate 74 ML/MIN Urine Collection Type CLEAN CATCH Urine Color YELLOW Urine Turbidity CLEAR Urine pH 5.5 Urine Specific [place] 1.015 Urine Protein TRACE mg/dL Urine Glucose (UA) NEG mg/dL Urine Ketones 15 mg/dL Urine Occult Blood NEG Urine Nitrite NEG Urine Bilirubin NEG Urine Urobilinogen 0.2 MG/DL Urine Leukocyte Esterase NEG Urine RBC 0-3 /hpf Urine WBC 0-2 /hpf Urine Squamous Epithelial Cells > 8 /hpf Urine Bacteria FEW /hpf Microscopic Urinalysis Comment CULT NOT INDICATED Urine Collection Time 11:28 [facility] Medical Decision Making Medical Screen Exam Complete: Yes Emergency Medical Condition: Yes Interpretation(s) Fever Leukocytosis 93% neutrophils Hyponatremia Urinalysis: Negative for infection CT abdomen pelvis: Acute appendicitis Differential Diagnosis Appendicitis, urinary tract infection, pyelonephritis, perforation Narrative Course This is a 47-year-old female who presents to the emergency department with nausea vomiting and abdominal pain for [address] demonstrates acute appendicitis. Labs demonstrate a leukocytosis with a neutrophil predominance. Patient was given IV fluids and IV antibiotics. She will be admitted for surgical management with Dr. Prescott. Physician Communication Physician Communication Discussed with Dr. Prescott Diagnosis Primary Impression: Acute appendicitis Qualified Codes: K35.3 - Acute appendicitis with localized peritonitis Admitting Information Admitting Physician Requests: Observation Charo Laguerre MD Nov 02, 2017 11:27
[2017-11-02 11:35] LABS: BLOOD, URINE NEG (NEG); GLUCOSE,URINE NEG (NEG); KETONE, URINE 15 mg/dL (NEG); NITRITE,URINE NEG (NEG); PH, URINE 5.5 (5.0-8.5); URINE COLOR YELLOW (YELLW/STRAW); URINE LEUKOCYTE ESTERASE NEG (NEG)
[2017-11-02 11:37] LABS: AUTOMATED NEUTROPHIL # 14.2 TH/MM3 (1.8-7.7); BASOPHIL # 0.1 TH/MM3 (0-0.2); BASOPHIL % 0.5 % (0.0-2.0); HEMATOCRIT 37.6 % (35.0-46.0); HEMOGLOBIN 12.7 GM/DL (11.6-15.3); LYMPH % 3.5 % (9.0-44.0); LYMPHOCYTE # 0.5 TH/MM3 (1.0-4.8); MEAN CORPUSCULAR HEMOGLOBIN 29.1 PG (27.0-34.0); MEAN CORPUSCULAR HGB CONC 33.9 % (32.0-36.0); MEAN PLATELET VOLUME 10.3 FL (7.0-11.0); MONO % 2.9 % (0.0-8.0); MONOCYTE # 0.4 TH/MM3 (0-0.9); NEUT % 93.1 % (16.0-70.0); PLATELET COUNT 181 TH/MM3 (150-450); RED BLOOD COUNT 4.37 MIL/MM3 (4.00-5.30); RED CELL DISTRIBUTION WIDTH 11.8 % (11.6-17.2); WHITE BLOOD COUNT 15.2 TH/MM3 (4.0-11.0)
[2017-11-02 11:41] LABS: BILIRUBIN, URINE NEG (NEG)
[2017-11-02 11:43] LABS: BACTERIA, URINE FEW /hpf; RBC, URINE 0-3 /hpf (0-3); SQUAMOUS EPITHELIAL CELL URINE > 8 /hpf (0-5); WBC, URINE 0-2 /hpf (0-5)
[2017-11-02 11:52] LABS: CHLORIDE 102 MEQ/L (98-107); SODIUM (NA) 135 MEQ/L (136-145)
[2017-11-02] MEDS ORDERED: IOHEXOL 350 MG/ML 10 ML VIAL (for RAD DIAG) IVCONTRAST ONE (11:52)
[2017-11-02 11:55] LABS: CALCIUM 9.1 MG/DL (8.5-10.1)
[2017-11-02 11:56] LABS: ALBUMIN 3.4 GM/DL (3.4-5.0); BICARBONATE 26.2 MEQ/L (21.0-32.0); BLOOD UREA NITROGEN 5 MG/DL (7-18); GLUCOSE,RANDOM 121 MG/DL (74-106)
[2017-11-02 11:59] LABS: ALT (GPT) 27 U/L (10-53); AST (GOT) 34 U/L (15-37); CREATININE 0.83 MG/DL (0.50-1.00); GLOMERULAR FILTRATION RATE 74 ML/MIN (>89)
[2017-11-02 12:00] LABS: TOTAL BILIRUBIN ADULT 0.5 MG/DL (0.2-1.0)
[2017-11-02] MEDS ORDERED: PIPERACIL-TAZO 3.375 GM PREMIX 50 ML IV ONE (12:00)
[2017-11-02 12:01] LABS: ALKALINE PHOSPHATASE 72 U/L (45-117)
--- NOTE | 2017-11-02 12:10 | RADRPT ---
EXAM DATE/TIME: 11/02/2017 11:44 [place] COMPARISON: No previous studies available for comparison. INDICATIONS : Right sided abdominal pain. IV CONTRAST: 90 cc Omnipaque 350 (iohexol) IV ORAL CONTRAST: No oral contrast ingested. RADIATION DOSE: 19.39 CTDIvol (mGy) MEDICAL HISTORY : None SURGICAL HISTORY : Hysterectomy. ENCOUNTER: Initial ACUITY: 3 days PAIN SCALE: 6/10 LOCATION: Right abdomen TECHNIQUE: Volumetric scanning of the abdomen and pelvis was performed. Using automated exposure control and ad justment of the mA and/or kV according to patient size, radiation dose was kept as low as reasonably achievable to obtain optimal diagnostic quality images. DICOM format image data is available electro nically for review and comparison. FINDINGS: LOWER LUNGS: The visualized lower lungs are clear. LIVER: Homogeneous density without lesion. There is no dilation of the biliary tree. No calcified gallston es. SPLEEN: Normal size without lesion. PANCREAS: Within normal limits. KIDNEYS: Normal in size and shape. There is no mass, stone or hydronephrosis. ADRENAL GLANDS: Within normal limits. VASCULAR: There is no aortic aneurysm. BOWEL/MESENTERY: There is an inflamed tubular structure right lower quadrant with significant inflammatory changes. No abscess or fluid collection. No perforation.. There is no free intraperitoneal air or fluid. ABDOMINAL WALL: Within normal limits. RETROPERITONEUM: There is no lymphadenopathy. BLADDER: No wall thickening or mass. REPRODUCTIVE: Uterus is absent. INGUINAL: There is no lymphadenopathy or hernia. MUSCULOSKELETAL: Within normal limits for patient age. CONCLUSION: 1. Findings consistent with acute appendicitis. 2. No perforation or abscess. Hamlet Copeland MD on November 02, 2017 at 12:06 Board Certified Radiologist. This report was verified electronically.
[2017-11-02] MEDS ORDERED: ACETAMINOPHEN 500 MG CPLT PO ONE (12:15)
[2017-11-02] MEDS ORDERED: SODIUM CHLOR 0.9% 1000 ML INJ 1,000 ML IV ONE ×2 (12:15→13:45)
[2017-11-02] MEDS ORDERED: SODIUM CHLOR 0.45% 1000 ML INJ 1,000 ML IV SCH (13:34)
--- NOTE | 2017-11-02 13:40 | HHI.HP ---
[facility] Unknown Admission Diagnosis acute appendicitis Diagnoses: Chief Complaint: Abdominal pain Travel History International Travel<30 Days: No Contact w/Intl Traveler <30 Da: No Traveled to Known Affected Are: No History of Present Illness 47-year-old female being admitted for sepsis secondary to acute appendicitis Patient was in her usual state of health until about 2-3 days ago when she began experiencing a sudden onset of right lower quadrant abdominal pain. Pain was burning and stabbing in nature. Ultimately maxed out at an intensity of 9/ 10. Did have some intermittent nausea and vomiting. Due to the persistence and progression of her symptoms, she decided come to the ER. Denies having any change in her bowel habits, says that she occasionally has loose stools routinely and that this is normal for her. Denies any melena or hematochezia. Denies any hematemesis. Does report feeling fevers and chills. Denies any dysuria. Says that her abdominal pain worsens when she takes deep breaths, hurts in her abdomen to bear down as if she is having a bowel movement. In the emergency department she has CT done which I independently reviewed and see no significant signs of substantial constipation. Radiology has read findings consistent with acute appendicitis. Patient was given Zosyn and IV morphine. Past medical history significant for depression, anxiety, insomnia for which the patient takes medications. Surgical history significant for hysterectomy and tubal ligation. Family history is unremarkable per patient. Social history significant for smoking lifelong up until a few years ago. Drinks about 2 drinks of alcohol a week, denies any illicit drug use. Review of Systems Except as stated in HPI: all other systems reviewed are Neg Past Family Social History Allergies: Coded Allergies: Sulfa (Sulfonamide Antibiotics) (Unverified Allergy, Severe, Anaphylaxis, 11/02/17) divalproex sodium (Unverified Allergy, Severe, SEIZURES, 11/02/17) erythromycin base (Unverified Allergy, Severe, Anaphylaxis, 11/02/17) amoxicillin (Unverified Allergy, Intermediate, PT DENIES ALLERGY, 11/02/17) clavulanic acid (Unverified Allergy, Intermediate, rash, 11/02/17) codeine (Unverified Allergy, Unknown, ABDOMINAL PAIN, 11/02/17) Physical Exam Vital Signs Vital Signs Date Time Temp Pulse Resp B/P (MAP) Pulse Ox O2 Delivery O2 Flow Rate FiO2 11/02/17 13:08 119 138/72 (94) 94 11/02/17 12:49 107 134/66 (88) 99 11/02/17 12:04 102.0 105 18 118/67 (84) 99 11/02/17 11:03 99 11/02/17 10:20 100.7 124 18 112/75 (87) 96 Physical Exam VS: afebrile GENERAL: Well-nourished middle-age white female, lying in bed, distress secondary to shivering SKIN: Warm and dry. EYES: No scleral icterus. No injection or drainage. ENT: No nasal bleeding or discharge. Mucous membranes pink and moist. CARDIOVASCULAR: Regular rate and rhythm. no murmurs RESPIRATORY: No accessory muscle use. Clear to auscultation. Breath sounds equal bilaterally. GASTROINTESTINAL: Abdomen soft, nondistended, has exquisite epigastric tenderness to palpation as well as over the right lower quadrant, very mild rebound noted over the right lower quadrant, no guarding Extremities: No clubbing, cyanosis, or edema. No obvious deformities. MUSCULOSKELETAL: adequate muscle bulk and tone for age and habitus NEUROLOGICAL: Awake and alert. No obvious cranial nerve deficits. No facial droop nor slurred speech noted. PSYCHIATRIC: Appropriate mood and affect; insight and judgment normal. Laboratory Laboratory Tests Test 11/02/17 11:00 11/02/17 11:28 11/02/17 12:24 White Blood Count 15.2 Red Blood Count 4.37 Hemoglobin 12.7 Hematocrit 37.6 Mean Corpuscular Volume 86.0 Mean Corpuscular Hemoglobin 29.1 Mean Corpuscular Hemoglobin Concent 33.9 Red Cell Distribution Width 11.8 Platelet Count 181 Mean Platelet Volume 10.3 Neutrophils (%) (Auto) 93.1 Lymphocytes (%) (Auto) 3.5 Monocytes (%) (Auto) 2.9 Eosinophils (%) (Auto) 0.0 Basophils (%) (Auto) 0.5 Neutrophils # (Auto) 14.2 Lymphocytes # (Auto) 0.5 Monocytes # (Auto) 0.4 Eosinophils # (Auto) 0.0 Basophils # (Auto) 0.1 CBC Comment DIFF FINAL Differential Comment Blood Urea Nitrogen 5 Creatinine 0.83 Random Glucose 121 Total Protein 8.0 Albumin 3.4 Calcium Level 9.1 Alkaline Phosphatase 72 Aspartate Amino Transf (AST/SGOT) 34 Alanine Aminotransferase (ALT/SGPT) 27 Total Bilirubin 0.5 Sodium Level 135 Potassium Level 3.5 Chloride Level 102 Carbon Dioxide Level 26.2 Anion Gap 7 Estimat Glomerular Filtration Rate 74 Urine Collection Type CLEAN CATCH Urine Color YELLOW Urine Turbidity CLEAR Urine pH 5.5 Urine Specific [place] 1.015 Urine Protein TRACE Urine Glucose (UA) NEG Urine Ketones 15 Urine Occult Blood NEG Urine Nitrite NEG Urine Bilirubin NEG Urine Urobilinogen 0.2 Urine Leukocyte Esterase NEG Urine RBC 0-3 Urine WBC 0-2 Urine Squamous Epithelial Cells > 8 Urine Bacteria FEW Microscopic Urinalysis Comment CULT NOT INDICATED Urine Collection Time 11:28 Lactic Acid Level 1.3 Date/Time Source Procedure Growth Status 11/02/17 12:24 Blood Peripheral Aerobic Blood Culture Pending Received 11/02/17 12:24 Blood Peripheral Anaerobic Blood Culture Pending Received Result Diagram: 11/02/17 1100 11/02/17 1100 Imaging Last Impressions Abdomen/Pelvis CT 11/02/17 1108 Signed Impressions: Service Date/Time: Thursday, November 02, 2017 11:44 - CONCLUSION: 1. Findings consistent with acute appendicitis. 2. No perforation or abscess. MD Nam Lewis VTE Risk Assessment Caprini VTE Risk Assessment: Mod/High Risk (score >= 2) VTE Pharm Contraindication: Documented Caprini Risk Assessment Model Point Value = 1 Point Value = 2 Point Value = 3 Point Value = 5 Age 41-60 Minor surgery BMI > 25 kg/m2 Swollen legs Varicose veins or History of unexplained or recurrent spontaneous Oral contraceptives or hormone replacement Sepsis (< 1 month) Serious lung disease, including pneumonia (< 1 month) Abnormal pulmonary function Acute myocardial infarction Congestive heart failure (< 1 month) History of inflammatory bowel disease Medical patient at bed rest Age 61-74 Arthroscopic surgery Major open surgery (> 45 min) Laparoscopic surgery (> 45 min) Malignancy Confined to bed (> 72 hours) Immobilizing plaster cast Central venous access Age >= 75 History of VTE Family history of VTE Factor V Leiden Prothrombin [id number] Lupus anticoagulant Anticardiolipin antibodies Elevated serum homocysteine Heparin-induced thrombocytopenia Other congenital or acquired thrombophilia Stroke (< 1 month) Elective arthroplasty Hip, pelvis, or leg fracture Acute spinal cord injury (< 1 month) Prophylaxis Regimen Total Risk Factor Score Risk Level Prophylaxis Regimen 0-1 Low Early ambulation 2 Moderate Order ONE of the following: *Sequential Compression Device (SCD) *Heparin 5000 units SQ BID 3-4 Higher Order ONE of the following medications: *Heparin 5000 units SQ TID *Enoxaparin/Lovenox 40 mg SQ daily (WT < 150 kg, CrCl > 30 mL/min) *Enoxaparin/Lovenox 30 mg SQ daily (WT < 150 kg, CrCl > 10-29 mL/min) *Enoxaparin/Lovenox 30 mg SQ BID (WT < 150 kg, CrCl > 30 mL/min) AND/OR *Sequential Compression Device (SCD) 5 or more Highest Order ONE of the following medications: *Heparin 5000 units SQ TID (Preferred with Epidurals) *Enoxaparin/Lovenox 40 mg SQ daily (WT < 150 kg, CrCl > 30 mL/min) *Enoxaparin/Lovenox 30 mg SQ daily (WT < 150 kg, CrCl > 10-29 mL/min) *Enoxaparin/Lovenox 30 mg SQ BID (WT < 150 kg, CrCl > 30 mL/min) AND *Sequential Compression Device (SCD) Assessment and Plan Assessment and Plan 47-year-old female being admitted for sepsis secondary to acute appendicitis Sepsis -But cultures have been drawn, UA is negative, source likely acute appendicitis -2 L of normal saline given in the emergency department, will order an additional liter for complete 30 ML/KG bolus -Given Zosyn in ER Abdominal pain -Based on CT this is acute appendicitis -General surgery has been consulted, anticipate going to the ER this evening, making n.p.o. -Starting IV Cipro and Flagyl -IV morphine for pain control Resume home medications for anxiety depression and insomnia SCDs given anticipated surgery Physician Certification 2 Midnight Certification Type: Admission for Inpatient Services Order for Inpatient Services The services are ordered in accordance with Medicare regulations or non- Medicare payer requirements, as applicable. In the case of services not specified as inpatient-only, they are appropriately provided as inpatient services in accordance with the 2-midnight benchmark. Estimated LOS (days): 2 2 days is the estimated time the patient will need to remain in the hospital, assuming treatment plan goals are met and no additional complications. Post-Hospital Plan: Home Cristian Coronel MD Nov 02, 2017 13:40
[2017-11-02] MEDS ORDERED: MORPHINE SULFATE 4 MG/ML INJ IV PUSH PRN (13:45)
[2017-11-02] MEDS ORDERED: LORazepam 0.5 MG TAB PO PRN (14:15)
[2017-11-02] MEDS ORDERED: ACETAMINOPHEN 500 MG CPLT PO PRN (15:30)
[2017-11-02] MEDS: metroNIDAZOLE 500 MG INJ 100 ML IV SCH ×2 (15:51→23:29)
[2017-11-02] MEDS: SODIUM CHLOR 0.9% 1000 ML INJ 1,000 ML IV SCH ×2 (15:51→23:29)
--- NOTE | 2017-11-02 17:02 | PD.CONS ---
cc: Suman Prescott MD HPI Service General Surgery Consult Requested By Dr. Castro Reason for Consult Acute appendicitis Primary Care Physician Unknown History of Present Illness This is a 47 year old female with a past medical history of depression, anxiety and insomnia who presented to the ED with complaints of severe sudden abdominal pain that began on Wednesday evening. She reports associated fever, nausea and chills. She denies any sick contacts. She denies any recent travel. A CT abdomen/pelvis was obtained which shows acute appendicitis. She does have an elevated WBC. A General Surgery consultation has been requested. Review of Systems Constitutional: COMPLAINS OF: Fever, DENIES: Fatigue, Chills, Change in appetite Endocrine: DENIES: Polydipsia, Polyuria, Polyphagia Eyes: DENIES: Diplopia Ears, nose, mouth, throat: DENIES: Hearing loss Respiratory: DENIES: Apneas Cardiovascular: DENIES: Chest pain Gastrointestinal: COMPLAINS OF: Abdominal pain, Nausea, Vomiting Genitourinary: DENIES: Urinary frequency Musculoskeletal: DENIES: Joint pain Integumentary: DENIES: Abnormal pigmentation Hematologic/lymphatic: DENIES: Bruising Immunologic/allergic: DENIES: Eczema Neurologic: DENIES: Headache, Localized weakness Psychiatric: DENIES: Confusion, Mood changes, Depression Past Family Social History Past Medical History Depression Anxiety Insomnia Past Surgical History Hysterectomy Tubal ligation Reported Medications Zoloft Trazodone Abilify Ativan Allergies: Coded Allergies: Sulfa (Sulfonamide Antibiotics) (Unverified Allergy, Severe, Anaphylaxis, 11/02/17) divalproex sodium (Unverified Allergy, Severe, SEIZURES, 11/02/17) erythromycin base (Unverified Allergy, Severe, Anaphylaxis, 11/02/17) amoxicillin (Unverified Allergy, Intermediate, PT DENIES ALLERGY, 11/02/17) clavulanic acid (Unverified Allergy, Intermediate, rash, 11/02/17) codeine (Unverified Allergy, Unknown, ABDOMINAL PAIN, 11/02/17) Active Ordered Medications Current Medications Medications (Trade) Dose Ordered Sig/Angela Route Start Time Stop Time Status Last Admin (NS Flush) 2 ml UNSCH PRN IV FLUSH 11/02/17 11:15 Ciprofloxacin/ Dextrose 200 ml @ 200 mls/hr Q12H IV 11/02/17 18:00 Metronidazole 100 ml @ 100 mls/hr Q8HR IV 11/02/17 16:00 11/02/17 15:51 (Morphine Inj) 4 mg Q3H PRN IV PUSH 11/02/17 13:45 11/02/17 15:52 Sodium Chloride 1,000 ml @ 84 mls/hr [id number] IV 11/02/17 13:45 11/02/17 15:51 (Abilify) 2 mg DAILY PO 11/03/17 09:00 (Ativan) 0.5 mg DAILY PRN PO 11/02/17 14:15 (Zoloft) 50 mg DAILY PO 11/03/17 09:00 (Desyrel) 150 mg HS PO 11/02/17 21:00 (Tylenol) 500 mg Q6H PRN PO 11/02/17 15:30 11/02/17 15:52 Family History Non contributory Social History Denies tobacco use Denies ETOH use Works at [employer]. She works at a [employer] and does not do heavy pushing, pulling or lifting. Physical Exam Vital Signs Vital Signs Date Time Temp Pulse Resp B/P (MAP) Pulse Ox O2 Delivery O2 Flow Rate FiO2 11/02/17 16:37 102.7 119 18 115/67 (83) 97 11/02/17 14:21 111 11/02/17 13:52 11/02/17 13:08 119 138/72 (94) 94 11/02/17 12:49 107 134/66 (88) 99 11/02/17 12:04 102.0 105 18 118/67 (84) 99 11/02/17 11:03 99 11/02/17 10:20 100.7 124 18 112/75 (87) 96 Physical Exam GENERAL: Very pleasant 47 year old female resting in bed in no acute distress. SKIN: Warm and dry. HEAD: Atraumatic. Normocephalic. EYES: Pupils equal and round. No scleral icterus. No injection or drainage. ENT: No nasal bleeding or discharge. Mucous membranes pink and moist. NECK: Trachea midline. CARDIOVASCULAR: Regular rate and rhythm. RESPIRATORY: No accessory muscle use. Clear to auscultation. Breath sounds equal bilaterally. GASTROINTESTINAL: Abdomen soft, nondistended. RLQ tenderness to palpation. Very faint laparoscopic scars. No hernias appreciated. MUSCULOSKELETAL: Extremities without clubbing, cyanosis, or edema. No obvious deformities. NEUROLOGICAL: Awake and alert. No obvious cranial nerve deficits. Motor grossly within normal limits. Five out of 5 muscle strength in the arms and legs. Normal speech. PSYCHIATRIC: Appropriate mood and affect; insight and judgment normal. Laboratory Laboratory Tests Test 11/02/17 11:00 11/02/17 11:28 11/02/17 12:24 White Blood Count 15.2 Red Blood Count 4.37 Hemoglobin 12.7 Hematocrit 37.6 Mean Corpuscular Volume 86.0 Mean Corpuscular Hemoglobin 29.1 Mean Corpuscular Hemoglobin Concent 33.9 Red Cell Distribution Width 11.8 Platelet Count 181 Mean Platelet Volume 10.3 Neutrophils (%) (Auto) 93.1 Lymphocytes (%) (Auto) 3.5 Monocytes (%) (Auto) 2.9 Eosinophils (%) (Auto) 0.0 Basophils (%) (Auto) 0.5 Neutrophils # (Auto) 14.2 Lymphocytes # (Auto) 0.5 Monocytes # (Auto) 0.4 Eosinophils # (Auto) 0.0 Basophils # (Auto) 0.1 CBC Comment DIFF FINAL Differential Comment Blood Urea Nitrogen 5 Creatinine 0.83 Random Glucose 121 Total Protein 8.0 Albumin 3.4 Calcium Level 9.1 Alkaline Phosphatase 72 Aspartate Amino Transf (AST/SGOT) 34 Alanine Aminotransferase (ALT/SGPT) 27 Total Bilirubin 0.5 Sodium Level 135 Potassium Level 3.5 Chloride Level 102 Carbon Dioxide Level 26.2 Anion Gap 7 Estimat Glomerular Filtration Rate 74 Urine Collection Type CLEAN CATCH Urine Color YELLOW Urine Turbidity CLEAR Urine pH 5.5 Urine Specific [place] 1.015 Urine Protein TRACE Urine Glucose (UA) NEG Urine Ketones 15 Urine Occult Blood NEG Urine Nitrite NEG Urine Bilirubin NEG Urine Urobilinogen 0.2 Urine Leukocyte Esterase NEG Urine RBC 0-3 Urine WBC 0-2 Urine Squamous Epithelial Cells > 8 Urine Bacteria FEW Microscopic Urinalysis Comment CULT NOT INDICATED Urine Collection Time 11:28 Lactic Acid Level 1.3 Date/Time Source Procedure Growth Status 11/02/17 12:24 Blood Peripheral Aerobic Blood Culture Pending Received 11/02/17 12:24 Blood Peripheral Anaerobic Blood Culture Pending Received Result Diagram: 11/02/17 1100 11/02/17 1100 Imaging Last 48 hours Impressions Abdomen/Pelvis CT 11/02/17 1108 Signed Impressions: Service Date/Time: Thursday, November 02, 2017 11:44 - CONCLUSION: 1. Findings consistent with acute appendicitis. 2. No perforation or abscess. Hamlet Copeland MD Assessment and Plan Assessment and Plan 47 year old female with acute appendicitis -Plan for OR intervention tonight -NPO -IVF -Continue IV antibiotics -Obtain consents -Discussed risks of procedure; including possible drain placement and open procedure -Thank you for this consult; We will continue to follow Discussed Condition With Dr. Kenyon Zuluaga + family at the bedside Natalie Thapa/Bridge Game Director ARNP Nov 02, 2017 17:02
[2017-11-02] MEDS ORDERED: ACETAMINOPHEN 1000 MG/100 ML 100 ML IV PRN (17:15)
[2017-11-02] MEDS ORDERED: MORPHINE SULFATE 2 MG/ML SYRINGE IV PUSH ONE (17:15)
[2017-11-02] MEDS: CIPROFLOXACIN 400 MG PREMIX 200 ML IV SCH (17:22)
[2017-11-02] MEDS: MORPHINE SULFATE 8 MG/ML INJ IV PUSH PRN (19:24)
[2017-11-02] MEDS ORDERED: BUPIVACAINE/EPINEPHRINE 0.5% PF 30 ML VIAL ONE (20:06)
[2017-11-02] MEDS ORDERED: FAMOTIDINE 20 MG/2 ML VIAL ONE (20:16)
[2017-11-02] MEDS ORDERED: MIDAZOLAM HCL 2 MG/2 ML VIAL ONE ×2 (20:16→20:22)
[2017-11-02] MEDS ORDERED: fentaNYL CITRATE 250 MCG/5 ML AMP ONE (20:23)
[2017-11-02] MEDS ORDERED: LACTATED RINGER'S 1000 ML IV PRN (20:30)
[2017-11-02] MEDS ORDERED: CHLORHEXIDINE GLUCONATE 2 % 1 PACK (2 CLOTHS) TOPICAL PRN (20:30)
[2017-11-02] MEDS ORDERED: POVIDONE IODINE 5% (ANTISEPSIS KIT) 4 APPLICATIONS EACH NARE PRN (20:30)
[2017-11-02] MEDS ORDERED: SODIUM CHLORID 0.9% 500 ML IV PRN (20:30)
--- NOTE | 2017-11-02 20:33 | HHI.PR ---
Immediate Post Op Note Procedure Date: Nov 02, 2017 Pre Op Diagnosis: acute appendicitis Post Op Diagnosis: same Surgeon: Suman Prescott MD Hobbing Press Operator(s): see or sheet Procedure: lap appy Findings: inflamed appendix Complications: none Specimen(s) removed: appendix Anesthesia: General Patient to: PACU Patient Condition: Good Suman Prescott MD Nov 02, 2017 20:33
[2017-11-02] MEDS ORDERED: HYDROmorphone HCL PF 2 MG/ML VIAL ONE (22:23)
[2017-11-02] MEDS ORDERED: MORPHINE SULFATE 4 MG/ML INJ ONE (22:43)
[2017-11-02] MEDS: traZODone HCL 50 MG TAB PO SCH (23:29)
[2017-11-03] VITALS (7 sets, daily range): BP systolic 102–111; BP diastolic 56–66; PULSE 67–95; RESP 18–20; TEMP 96.9–99.5; O2SAT 96–98
[2017-11-03] MEDS: MORPHINE SULFATE 8 MG/ML INJ IV PUSH PRN ×4 (04:02→17:37)
[2017-11-03 05:22] LABS: AUTOMATED NEUTROPHIL # 6.2 TH/MM3 (1.8-7.7); BASOPHIL % 0.3 % (0.0-2.0); EOSINOPHIL % 0.6 % (0.0-4.0); HEMATOCRIT 29.9 % (35.0-46.0); HEMOGLOBIN 10.3 GM/DL (11.6-15.3); LYMPH % 4.3 % (9.0-44.0); LYMPHOCYTE # 0.3 TH/MM3 (1.0-4.8); MEAN CELL VOLUME 87.3 FL (80.0-100.0); MEAN CORPUSCULAR HEMOGLOBIN 30.1 PG (27.0-34.0); MEAN CORPUSCULAR HGB CONC 34.5 % (32.0-36.0); MEAN PLATELET VOLUME 9.4 FL (7.0-11.0); MONO % 3.6 % (0.0-8.0); MONOCYTE # 0.2 TH/MM3 (0-0.9); NEUT % 91.2 % (16.0-70.0); PLATELET COUNT 130 TH/MM3 (150-450); RED BLOOD COUNT 3.43 MIL/MM3 (4.00-5.30); RED CELL DISTRIBUTION WIDTH 12.4 % (11.6-17.2); WHITE BLOOD COUNT 6.7 TH/MM3 (4.0-11.0)
[2017-11-03] MEDS: CIPROFLOXACIN 400 MG PREMIX 200 ML IV SCH ×2 (05:25→17:38)
[2017-11-03] MEDS: metroNIDAZOLE 500 MG INJ 100 ML IV SCH ×3 (06:31→20:45)
[2017-11-03] MEDS: SODIUM CHLOR 0.9% 1000 ML INJ 1,000 ML IV SCH ×2 (06:32→14:50)
[2017-11-03] MEDS: ARIPiprazole 2 MG TAB PO SCH (08:07)
[2017-11-03] MEDS: SERTRALINE HCL 50 MG TAB PO SCH (08:07)
--- NOTE | 2017-11-03 08:40 | HHI.PR ---
Subjective Subjective Notes Resting in bed Pain much better today Objective Vitals/I&O Vital Signs Date Time Temp Pulse Resp B/P (MAP) Pulse Ox O2 Delivery O2 Flow Rate FiO2 11/03/17 04:00 98.7 71 20 109/62 (78) 98 11/02/17 22:50 Nasal Cannula 3 Labs Laboratory Tests Test 11/02/17 11:00 11/02/17 11:28 11/02/17 12:24 11/03/17 04:50 White Blood Count 15.2 6.7 Red Blood Count 4.37 3.43 Hemoglobin 12.7 10.3 Hematocrit 37.6 29.9 Mean Corpuscular Volume 86.0 87.3 Mean Corpuscular Hemoglobin 29.1 30.1 Mean Corpuscular Hemoglobin Concent 33.9 34.5 Red Cell Distribution Width 11.8 12.4 Platelet Count 181 130 Mean Platelet Volume 10.3 9.4 Neutrophils (%) (Auto) 93.1 91.2 Lymphocytes (%) (Auto) 3.5 4.3 Monocytes (%) (Auto) 2.9 3.6 Eosinophils (%) (Auto) 0.0 0.6 Basophils (%) (Auto) 0.5 0.3 Neutrophils # (Auto) 14.2 6.2 Lymphocytes # (Auto) 0.5 0.3 Monocytes # (Auto) 0.4 0.2 Eosinophils # (Auto) 0.0 0.0 Basophils # (Auto) 0.1 0.0 CBC Comment DIFF FINAL DIFF FINAL Differential Comment Blood Urea Nitrogen 5 Creatinine 0.83 Random Glucose 121 Total Protein 8.0 Albumin 3.4 Calcium Level 9.1 Alkaline Phosphatase 72 Aspartate Amino Transf (AST/SGOT) 34 Alanine Aminotransferase (ALT/SGPT) 27 Total Bilirubin 0.5 Sodium Level 135 Potassium Level 3.5 Chloride Level 102 Carbon Dioxide Level 26.2 Anion Gap 7 Estimat Glomerular Filtration Rate 74 Urine Collection Type CLEAN CATCH Urine Color YELLOW Urine Turbidity CLEAR Urine pH 5.[address] 1.015 Urine Protein TRACE Urine Glucose (UA) NEG Urine Ketones 15 Urine Occult Blood NEG Urine Nitrite NEG Urine Bilirubin NEG Urine Urobilinogen 0.2 Urine Leukocyte Esterase NEG Urine RBC 0-3 Urine WBC 0-2 Urine Squamous Epithelial Cells > 8 Urine Bacteria FEW Microscopic Urinalysis Comment CULT NOT INDICATED Urine Collection Time 11:28 Lactic Acid Level 1.3 Date/Time Source Procedure Growth Status 11/02/17 12:24 Blood Peripheral Aerobic Blood Culture Pending Received 11/02/17 12:24 Blood Peripheral Anaerobic Blood Culture Pending Received Radiology Last 48 hours Impressions Abdomen/Pelvis CT 11/02/17 1108 Signed Impressions: Service Date/Time: Thursday, November 02, 2017 11:44 - CONCLUSION: 1. Findings consistent with acute appendicitis. 2. No perforation or abscess. Hamlet Copeland MD Cardiovascular: Regular Lungs: Clear Abdomen: Other (lap sites c/d/i; MARIA ISABEL with very minimal thin midly cloudy drainage ) Extremities: No edema A/P Assessment and Plan 47 year old female POD1 lap appy; localized perforation -Start sips of clears -IVF -Pain control -IV antibiotics -Advised she may have ileus Natalie ThapaP/Center Machine Operator POULTRY PROCESSOR Nov 03, 2017 08:40
--- NOTE | 2017-11-03 09:43 | MP ---
cc: Suman Prescott MD DATE OF OPERATION: 11/03/2017 PREOPERATIVE DIAGNOSIS: Acute appendicitis. POSTOPERATIVE DIAGNOSIS: Necrotic acute appendicitis with localized perforation. PROCEDURE PERFORMED: Laparoscopic appendectomy. SURGEON: Suman Prescott MD. JOB ANALYSIS MANAGER: See OR sheet. ANESTHESIA: GETA. IV FLUIDS: 200 mL. ESTIMATED BLOOD LOSS: 10 mL. DRAINS: A 7-Sammarinese Emmett drain in the right lower quadrant. COMPLICATIONS: None. WOUND CLASSIFICATION: Dirty, contaminated. SPECIMENS: Appendix. FINDINGS: Necrotic, localized perforation, infected acute appendicitis. INDICATIONS FOR PROCEDURE: The patient is a 47-year-old female who presents with acute onset of abdominal pain that started Wednesday. The patient, 2-1/2 days later, presented to the emergency department for evaluation including CT scan showing acute appendicitis. Therefore, the decision for operative intervention including Laparoscopic appendectomy. DETAILS OF PROCEDURE: The patient was taken to the operating suite, placed in the supine position. She was prepped and draped in the usual sterile fashion after induction of general endotracheal anesthesia. A brief time-out done stating correct patient, procedure, surgical site, and we were all in agreement with this. Attention first directed to the umbilicus where local anesthetic was injected. A small stab tati incision was made with an #11 blade. A Veress needle was used. The abdomen insufflated to 15 mm pneumoperitoneum. The Veress needle was removed and changed for a 5 mm trocar, which was placed actually in the left lower quadrant 5 mm incision site. On cursory inspection, there was no evidence of injury. The umbilical port was then placed under direct vision. The left lower quadrant port was upsized to a 12 mm and a suprapubic 5 mm port was placed as well. The patient placed in Trendelenburg and airplaned to the left. The right lower quadrant was identified. There was a small amount of localized perforation there. Suction irrigation used. The appendix was noted to be necrotic and somewhat friable. This was mobilized and a small window was made in the mesoappendix at the base of the appendix and this was done with [place] and monopolar. A GI stapler was used to transect the base of the mesoappendix and 2 loads were used to transect the mesoappendix. The appendix was placed in the bag and then removed from the left lower quadrant. Suction irrigation done until the effluent was clear. Monopolar Bovie cautery was used for hemostasis. A small drain was placed, 7-Sammarinese in the right lower quadrant out the suprapubic incision and secured with 4-0 Monocryl. The left lower quadrant 12 mm incision was closed with a 0 Vicryl and then a 4-0 Monocryl. Local anesthetic injected at all port sites. All port sites were closed again with 4-0 Monocryl. Sterile dressing was placed including Steri-Strips and Mastisol. The patient was extubated and taken stable to the PACU. Lars MD RAGINI Boles/ANDERS , 09:24 AM , 09:42 AM
--- NOTE | 2017-11-03 10:50 | HHI.PR ---
Subjective Remarks Nursing denies any deterioration since last night. Patient says she still has pain but is much improved since admission. Objective Vital Signs Date Time Temp Pulse Resp B/P (MAP) Pulse Ox O2 Delivery O2 Flow Rate FiO2 11/03/17 08:00 98.0 70 18 108/61 (77) 98 11/03/17 04:00 98.7 71 20 109/62 (78) 98 11/03/17 00:00 99.1 95 20 108/66 (80) 98 11/02/17 22:50 99.0 100 16 95/52 (66) 97 Nasal Cannula 3 11/02/17 22:35 101 15 100/54 (69) 97 Nasal Cannula 3 11/02/17 22:25 100 15 105/63 (77) 97 Nasal Cannula 3 11/02/17 22:20 115 15 116/62 (80) 95 Nasal Cannula 3 11/02/17 22:05 99.7 119 14 103/58 (73) 97 Simple Mask 7 11/02/17 22:05 119 11/02/17 19:30 63 11/02/17 19:30 100.8 90 18 102/59 (73) 96 11/02/17 17:30 100.8 90 18 102/59 (73) 96 11/02/17 17:27 18 11/02/17 16:52 18 11/02/17 16:37 102.7 119 18 115/67 (83) 97 11/02/17 15:57 18 11/02/17 14:21 111 11/02/17 13:52 11/02/17 13:08 119 138/72 (94) 94 11/02/17 12:49 107 134/66 (88) 99 11/02/17 12:04 102.0 105 18 118/67 (84) 99 11/02/17 11:03 99 I/O 11/02/17 11/02/17 11/02/17 11/03/17 11/03/17 11/03/17 06:59 14:59 22:59 06:59 14:59 22:59 Intake Total 2050 ml 2800 ml 1972 ml Output Total 320 ml 20 ml Balance 2050 ml 2480 ml 1972 ml -20 ml Intake Oral 0 ml IV Total 2050 ml 2800 ml 1972 ml Output Urine Total 200 ml Drainage Total 110 ml 20 ml Estimated Blood Loss 10 ml # Voids 2 1 # Bowel Movements 0 Result Diagram: 11/03/17 0450 11/02/17 1100 Objective Remarks Mild diffuse lower abdominal tenderness palpation, much improved since yesterday , abdomen soft with postop dressings and MARIA ISABEL drain Lying in bed, no acute distress A/P Assessment and Plan 47-year-old female being admitted for sepsis secondary to acute appendicitis Sepsis -Blood cultures pending, clinically improving acute appendicitis -Postop day 1 - IV Cipro and Flagyl -IV morphine for pain control home medications for anxiety depression and insomnia lovenox starting this evening Addendum: Gram-negative rods noted in blood Cristian Coronel MD Nov 03, 2017 10:50
[2017-11-03] MEDS ORDERED: ACETAMINOPHEN 325 MG TAB PO PRN (11:30)
[2017-11-03] MEDS: traZODone HCL 50 MG TAB PO SCH (20:45)
[2017-11-04] VITALS: BP 103/58; PULSE 81; RESP 20; TEMP 97.1; O2SAT 97
[2017-11-04 04:00] VITALS: BP 102/56; PULSE 72; RESP 20; TEMP 97.2; O2SAT 98
[2017-11-04] MEDS: CIPROFLOXACIN 400 MG PREMIX 200 ML IV SCH ×2 (05:02→18:12)
[2017-11-04] MEDS: metroNIDAZOLE 500 MG INJ 100 ML IV SCH ×3 (06:07→20:52)
[2017-11-04 08:00] VITALS: BP 110/71; PULSE 80; RESP 18; TEMP 97.2; O2SAT 97
[2017-11-04] MEDS ORDERED: METR-1 PO (08:44)
[2017-11-04] MEDS ORDERED: CIPR-9 PO (08:44)
[2017-11-04] MEDS ORDERED: ACETAMINOPHEN/HYDROcodone 325 MG/5 MG TAB PO PRN ×2 (08:45)
[2017-11-04] MEDS: ARIPiprazole 2 MG TAB PO SCH (09:30)
[2017-11-04] MEDS: SERTRALINE HCL 50 MG TAB PO SCH (09:30)
[2017-11-04] MEDS: oxyCODONE/ACETAMINOPHEN 5 MG/325 MG TAB PO PRN ×4 (09:31→22:54)
[2017-11-04 12:00] VITALS: BP 133/76; PULSE 76; RESP 18; TEMP 97.6; O2SAT 97
--- NOTE | 2017-11-04 15:16 | HHI.PR ---
Subjective Remarks Nursing denies any deterioration since last night. Patient says she still has much improved pain since admission. Is passing gas. Tolerating p.o. intake well. Afebrile. Objective Vital Signs Date Time Temp Pulse Resp B/P (MAP) Pulse Ox O2 Delivery O2 Flow Rate FiO2 11/04/17 15:09 16 11/04/17 12:00 97.6 76 18 133/76 (95) 97 11/04/17 08:00 97.2 80 18 110/71 (84) 97 11/04/17 04:00 97.2 72 20 102/56 (71) 98 11/04/17 00:00 97.1 81 20 103/58 (73) 97 11/03/17 20:00 67 11/03/17 20:00 96.9 72 20 102/56 (71) 96 11/03/17 16:00 97.8 74 18 110/60 (77) 98 I/O 11/03/17 11/03/17 11/03/17 11/04/17 11/04/17 11/04/17 07:00 15:00 23:00 07:00 15:00 23:00 Intake Total 1972 ml 1968 ml 200 ml Output Total 20 ml 11 ml Balance 1972 ml -20 ml 1957 ml 200 ml Intake Oral 0 ml 480 ml IV Total 1972 ml 1488 ml 200 ml Stool Total 1 ml Drainage Total 20 ml 10 ml # Voids 1 4 3 # Bowel Movements 0 0 Result Diagram: 11/03/17 0450 11/02/17 1100 Objective Remarks Very mild lower abdominal tenderness palpation, much improved since yesterday, abdomen soft with postop dressings and MARIA ISABEL drain Lying in bed, no acute distress A/P Assessment and Plan 47-year-old female being admitted for sepsis secondary to acute appendicitis Sepsis -Sepsis element resolved Bacteremia -New problem gram-negative rods anaerobic growing, discussed with microbiology, speciation for sensitivities to return tomorrow acute appendicitis -Postop day 2 - IV Cipro and Flagyl - po pain control home medications for anxiety depression and insomnia Cristian Rasmussen MD Nov 04, 2017 15:16
[2017-11-04 16:00] VITALS: BP 99/66; PULSE 92; RESP 18; TEMP 97.2; O2SAT 96
--- NOTE | 2017-11-04 16:22 | HHI.PR ---
Subjective Subjective Notes Patient seen about 0730 "I feel so much better today! I actually feel hungry." Objective Vitals/I&O Vital Signs Date Time Temp Pulse Resp B/P (MAP) Pulse Ox O2 Delivery O2 Flow Rate FiO2 11/04/17 15:09 16 11/04/17 12:00 97.6 76 133/76 (95) 97 11/02/17 22:50 Nasal Cannula 3 Labs Date/Time Source Procedure Growth Status 11/04/17 10:30 Blood Peripheral Aerobic Blood Culture Pending Received 11/04/17 10:30 Blood Peripheral Anaerobic Blood Culture Pending Received Radiology Last 48 hours Impressions Abdomen/Pelvis CT 11/02/17 1108 Signed Impressions: Service Date/Time: Thursday, November 02, 2017 11:44 - CONCLUSION: 1. Findings consistent with acute appendicitis. 2. No perforation or abscess. Hamlet Copeland MD Cardiovascular: Regular Lungs: Clear Abdomen: Other (lap sites c/d/i; MARIA ISABEL with clear drainage ) Extremities: No edema A/P Assessment and Plan 47 year old female POD2 lap appy; localized perforation -Advance to regular diet; encouraged smaller more frequent meals + Blood cultures; await culture and sensitivity -DC IVF -Pain control----added Percocet -OOB -Okay to shower; pat incisions dry -Continue routine MARIA ISABEL care Natalie Thapa/Help Desk Manager TERRENCE Nov 04, 2017 16:22
[2017-11-04 20:00] VITALS: BP 114/70; PULSE 77; RESP 20; TEMP 96.9; O2SAT 97
[2017-11-04] MEDS: traZODone HCL 50 MG TAB PO SCH (20:52)
[2017-11-04] MEDS: ONDANSETRON HCL 4 MG/2 ML VIAL IV PUSH PRN (22:54)
[2017-11-05] VITALS: BP 105/59; PULSE 80; RESP 20; TEMP 99.4; O2SAT 95
[2017-11-05] MEDS: CIPROFLOXACIN 400 MG PREMIX 200 ML IV SCH (05:34)
[2017-11-05] MEDS: metroNIDAZOLE 500 MG INJ 100 ML IV SCH ×2 (05:34→13:55)
[2017-11-05] MEDS: ONDANSETRON HCL 4 MG/2 ML VIAL IV PUSH PRN (06:44)
[2017-11-05 07:48] VITALS: BP 123/82; PULSE 90; RESP 19; TEMP 97.4; O2SAT 95
[2017-11-05] MEDS: oxyCODONE/ACETAMINOPHEN 5 MG/325 MG TAB PO PRN ×2 (07:55→12:39)
[2017-11-05] MEDS: SERTRALINE HCL 50 MG TAB PO SCH (09:16)
[2017-11-05] MEDS: ARIPiprazole 2 MG TAB PO SCH (09:16)
[2017-11-05] MEDS ORDERED: DOCUSATE SODIUM 100 MG CAP PO SCH (10:00)
--- NOTE | 2017-11-05 10:01 | HHI.DCPOC ---
Discharge Care Plan Diagnosis: (1) Acute appendicitis Goals to Promote Your Health * To prevent worsening of your condition and complications * To maintain your health at the optimal level Directions to Meet Your Goals Take your medications as prescribed Follow your dietary instruction Follow activity as directed Keep your appointments as scheduled Take your immunizations and boosters as scheduled If your symptoms worsen call your PCP, if no PCP go to Urgent Care Center or Emergency Room Smoking is Dangerous to Your Health. Avoid second hand smoke Call the 24-hour hour crisis hotline for domestic abuse at Cristian Coronel MD Nov 05, 2017 10:01
[2017-11-05 12:00] VITALS: BP 127/74; PULSE 70; RESP 18; TEMP 97.4; O2SAT 96
--- NOTE | 2017-11-05 14:51 | HHI.PR ---
Subjective Subjective Notes Resting in bed A little nauseous overnight Objective Vitals/I&O Vital Signs Date Time Temp Pulse Resp B/P (MAP) Pulse Ox O2 Delivery O2 Flow Rate FiO2 11/05/17 13:39 16 11/05/17 12:00 97.4 70 127/74 (91) 96 11/02/17 22:50 Nasal Cannula 3 Labs Date/Time Source Procedure Growth Status 11/04/17 10:30 Blood Peripheral Aerobic Blood Culture - Preliminary NO GROWTH IN 1 DAY Resulted 11/04/17 10:30 Blood Peripheral Anaerobic Blood Culture - Preliminary NO GROWTH IN 1 DAY Resulted Radiology Last 48 hours Impressions Abdomen/Pelvis CT 11/02/17 1108 Signed Impressions: Service Date/Time: Thursday, November 02, 2017 11:44 - CONCLUSION: 1. Findings consistent with acute appendicitis. 2. No perforation or abscess. Hamlet Copeland MD Cardiovascular: Regular Lungs: Clear Abdomen: Other (lap sites c/d/i; MARIA ISABEL with minimal serous fluid ) Extremities: No edema A/P Assessment and Plan 47 year old female POD3 lap appy; localized perforation -Regular diet + Blood cultures; await culture and sensitivity -DC MARIA ISABEL -Pain control with Percocet -OOB -Okay to shower; pat incisions dry -RX on chart for Percocet and Zofran; Rx on chart for Flagyl and Cipro ---may need to be adjusted based on c/s on blood cultures -GS clear for DC once c/s back -Follow up WednesdayNovember 12 at 10:20AM Natalie Thapa CHARGE GANG WEIGHER/Bottom Finisher [employer]GE GANG WEIGHER Nov 05, 2017 14:50
[2017-11-05 16:00] VITALS: BP 117/75; PULSE 67; RESP 18; TEMP 97.8; O2SAT 97
[2017-11-05] MEDS ORDERED: CIPR500T2 PO (16:06)
[2017-11-05] MEDS ORDERED: METR1TAB76 PO (16:06)
== END 2017-11-05 17:01 | disposition home or self-care (01) | DRG 853 ==
LOC: PHED 10:16 → PHEDA 12:13 → OBSVTOIN 13:34 → PH3A 13:54
PROVIDERS: ADMIT Hospitalist; ATTEND Hospitalist
PROC: 0DTJ4ZZ Resection of Appendix, Percutaneous Endoscopic Approach (ICD-10-PCS; principal; 2017-11-02 20:23)
DX: A41.9 Sepsis, unspecified organism (principal); K35.3 Acute appendicitis with localized peritonitis; E87.1 Hypo-osmolality and hyponatremia; F31.9 Bipolar disorder, unspecified; F41.8 Other specified anxiety disorders; G47.00 Insomnia, unspecified; Z90.710 Acquired absence of both cervix and uterus; Z79.899 Other long term (current) drug therapy
CPT/HCPCS: 74177; 80053; 81001; 83605; 85025; 87040; 87076; 87185; 87205; 88304; J0131; J0744; J1170; J2250; J2270; J2405; J2543; J3010; J7030; J7120; Q9967